=== PATIENT | male | born 1955 ===

== ENCOUNTER 2020-08-03 08:28 | Outpatient (REF) | payer OTHER, SELFPAY ==
[2020-08-03 11:41] LABS: Alanine Aminotransferase 22 U/L (0-40); Anion Gap 11 (12-20); Aspartate Amino Transferase 21 U/L (5-37); Blood Urea Nitrogen 16 mg/dL (9-16); Calcium 8.7 mg/dL (8.4-10.2); Carbon Dioxide 28 mmol/L (22-29); Chloride 103 mmol/L (96-108); Cholesterol 159 mg/dL; Estimated Average Glucose 154 mg/dL; Estimated Glomerular Filt Rate > 60; Glucose Fasting 141 mg/dL (60-99); HDL Cholesterol 47 mg/dL; LDL Cholesterol Calculated 93 mg/dl; Potassium 4.2 mmol/l (3.3-5.1); Sodium 138 mmol/L (135-145); Triglycerides 95 mg/dL
[2020-08-03 11:50] LABS: Thyroid Stimulating Hormone 0.99 uIU/mL (0.32-4.0)
== END 2020-08-03 08:29 | disposition home or self-care (01) ==
LOC: HO.HMGCLDS 08:28
PROVIDERS: PCP Internal Medicine; Visit Provider Internal Medicine
DX: E11.9 Type 2 diabetes mellitus without complications (principal); E78.5 Hyperlipidemia, unspecified; E66.3 Overweight; I10 Essential (primary) hypertension
CPT/HCPCS: 80048; 80061; 83036; 84443; 84450; 84460

== ENCOUNTER 2020-11-07 08:26 | Outpatient (REF) | payer OTHER, SELFPAY ==
[2020-11-07 11:45] LABS: Estimated Average Glucose 223 mg/dL; Hemoglobin A1c % 9.4 %
[2020-11-07 12:09] LABS: Alanine Aminotransferase 27 U/L (0-40); Anion Gap 13 (12-20); Aspartate Amino Transferase 24 U/L (5-37); Blood Urea Nitrogen 26 mg/dL (9-16); Calcium 9.4 mg/dL (8.4-10.2); Carbon Dioxide 26 mmol/L (22-29); Chloride 106 mmol/L (96-108); Cholesterol 193 mg/dL; Estimated Glomerular Filt Rate > 60; Glucose Fasting 218 mg/dL (60-99); HDL Cholesterol 56 mg/dL; LDL Cholesterol Calculated 118 mg/dl; Potassium 4.3 mmol/L (3.3-5.1); Sodium 141 mmol/L (135-145); Triglycerides 99 mg/dL
[2020-11-07 12:10] LABS: Creatinine Urine 175.89 mg/dL; Microalbum/Creatinine Ratio Ur 32.4 ug/mg cr
== END 2020-11-07 08:27 | disposition home or self-care (01) ==
LOC: HO.HMGCLDS 08:26
PROVIDERS: PCP Internal Medicine; Visit Provider Internal Medicine
DX: I10 Essential (primary) hypertension (principal); E11.9 Type 2 diabetes mellitus without complications; E78.5 Hyperlipidemia, unspecified
CPT/HCPCS: 36415; 80048; 80061; 82043; 83036; 84450; 84460

== ENCOUNTER 2021-02-28 08:32 | Outpatient (REF) | payer OTHER, SELFPAY ==
[2021-02-28 11:44] LABS: Estimated Average Glucose 194 mg/dL; Hemoglobin A1c % 8.4 %
[2021-02-28 11:50] LABS: Alanine Aminotransferase 19 U/L (0-40); Anion Gap 12 (12-20); Aspartate Amino Transferase 22 U/L (5-37); Blood Urea Nitrogen 27 mg/dL (9-16); Calcium 9.6 mg/dL (8.4-10.2); Carbon Dioxide 25 mmol/L (22-29); Chloride 107 mmol/L (96-108); Cholesterol 161 mg/dL; Estimated Glomerular Filt Rate > 60; Glucose Fasting 124 mg/dL (60-99); HDL Cholesterol 44 mg/dL; LDL Cholesterol Calculated 98 mg/dl; Potassium 4.1 mmol/L (3.3-5.1); Sodium 140 mmol/L (135-145); Triglycerides 98 mg/dL
== END 2021-02-28 08:33 | disposition home or self-care (01) ==
LOC: HO.HMGCLDS 08:32
PROVIDERS: PCP Internal Medicine; Visit Provider Internal Medicine
DX: E11.29 Type 2 diabetes mellitus with other diabetic kidney complication (principal); E78.5 Hyperlipidemia, unspecified; R80.9 Proteinuria, unspecified; I10 Essential (primary) hypertension
CPT/HCPCS: 36415; 80048; 80061; 83036; 84450; 84460

== ENCOUNTER 2021-07-10 08:49 | Outpatient (REF) | payer OTHER, SELFPAY ==
[2021-07-10 12:00] LABS: Estimated Average Glucose 183 mg/dL
[2021-07-10 12:25] LABS: Alanine Aminotransferase 21 U/L (0-40); Anion Gap 13 (12-20); Aspartate Amino Transferase 22 U/L (5-37); Blood Urea Nitrogen 17 mg/dL (9-16); Calcium 9.6 mg/dL (8.4-10.2); Carbon Dioxide 25 mmol/L (22-29); Chloride 105 mmol/L (96-108); Cholesterol 169 mg/dL; Estimated Glomerular Filt Rate > 60; Glucose Fasting 195 mg/dL (60-99); HDL Cholesterol 44 mg/dL; LDL Cholesterol Calculated 100 mg/dl; Potassium 4.4 mmol/L (3.3-5.1); Sodium 139 mmol/L (135-145); Triglycerides 128 mg/dL
== END 2021-07-10 08:50 | disposition home or self-care (01) ==
LOC: HO.HMGCLDS 08:49
PROVIDERS: PCP Internal Medicine; Visit Provider Internal Medicine
DX: E11.29 Type 2 diabetes mellitus with other diabetic kidney complication (principal); E78.5 Hyperlipidemia, unspecified; I10 Essential (primary) hypertension; R80.9 Proteinuria, unspecified
CPT/HCPCS: 36415; 80048; 80061; 83036; 84450; 84460

== ENCOUNTER 2021-10-02 10:12 | Outpatient (REF) | payer OTHER, SELFPAY ==
[2021-10-02 10:37] LABS: Binax Internal Control QC Valid; Binax Now Covid-19 Ag Negative (Negative)
== END 2021-10-02 10:13 | disposition home or self-care (01) ==
LOC: HO.HMGCLDS 10:12
PROVIDERS: PCP Physician Assistant Medical; Visit Provider Physician Assistant Medical
DX: Z20.822 Contact with and (suspected) exposure to COVID-19 (principal); R05.9 Cough, unspecified
CPT/HCPCS: U0003; U0005

== ENCOUNTER 2021-12-25 09:10 | Outpatient (REF) | payer OTHER, SELFPAY ==
[2021-12-25 11:55] LABS: Alanine Aminotransferase 28 U/L (0-40); Anion Gap 10 (12-20); Aspartate Amino Transferase 24 U/L (5-37); Blood Urea Nitrogen 15 mg/dL (9-16); Calcium 9.6 mg/dL (8.4-10.2); Carbon Dioxide 30 mmol/L (22-29); Chloride 104 mmol/L (96-108); Cholesterol 181 mg/dL; Estimated Glomerular Filt Rate > 60; Glucose Fasting 187 mg/dL (60-99); HDL Cholesterol 47 mg/dL; LDL Cholesterol Calculated 111 mg/dl; Potassium 4.7 mmol/L (3.3-5.1); Sodium 139 mmol/L (135-145); Triglycerides 119 mg/dL
[2021-12-25 11:56] LABS: Estimated Average Glucose 183 mg/dL
== END 2021-12-25 09:11 | disposition home or self-care (01) ==
LOC: HO.HMGCLDS 09:10
PROVIDERS: PCP Internal Medicine; Visit Provider Internal Medicine
DX: Z00.01 Encounter for general adult medical examination with abnormal findings (principal); E11.29 Type 2 diabetes mellitus with other diabetic kidney complication; E78.5 Hyperlipidemia, unspecified; I10 Essential (primary) hypertension; R80.9 Proteinuria, unspecified
CPT/HCPCS: 36415; 80048; 80061; 83036; 84450; 84460

== ENCOUNTER 2022-07-11 09:24 | Outpatient (REF) | payer OTHER, SELFPAY ==
[2022-07-11 12:00] LABS: Estimated Average Glucose 186 mg/dL; Hemoglobin A1c % 8.1 %
[2022-07-11 12:34] LABS: PSA,Total (Free>4and<10) 1.44 ng/mL (0.00-4.00); Vitamin D 25-OH Total 20.9 ng/mL (>30)
[2022-07-11 12:48] LABS: Alanine Aminotransferase 17 U/L (0-40); Anion Gap 14 (12-20); Aspartate Amino Transferase 19 U/L (5-37); Blood Urea Nitrogen 14 mg/dL (9-16); Calcium 9.3 mg/dL (8.4-10.2); Carbon Dioxide 27 mmol/L (22-29); Chloride 103 mmol/L (96-108); Cholesterol 159 mg/dL; Estimated Glomerular Filt Rate > 60; Glucose Fasting 192 mg/dL (60-99); HDL Cholesterol 51 mg/dL; LDL Cholesterol Calculated 92 mg/dl; Potassium 4.3 mmol/L (3.3-5.1); Sodium 140 mmol/L (135-145); Triglycerides 84 mg/dL
[2022-07-11 12:54] LABS: Creatinine Urine 69.11 mg/dL; Microalbum/Creatinine Ratio Ur 28.9 ug/mg cr
== END 2022-07-11 09:25 | disposition home or self-care (01) ==
LOC: HO.HMGCLDS 09:24
PROVIDERS: PCP Internal Medicine; Visit Provider Internal Medicine
DX: E11.29 Type 2 diabetes mellitus with other diabetic kidney complication (principal); R80.9 Proteinuria, unspecified; E78.5 Hyperlipidemia, unspecified; I10 Essential (primary) hypertension; Z12.5 Encounter for screening for malignant neoplasm of prostate
CPT/HCPCS: 36415; 80048; 80061; 82043; 82306; 83036; 84153; 84450; 84460

== ENCOUNTER → 2023-01-09 08:28 | Outpatient (BNVA) | payer BC, SELFPAY | PROVIDERS: PCP Internal Medicine; Visit Provider Nurse Practitioner Family | DX: N40.1 Benign prostatic hyperplasia with lower urinary tract symptoms (principal); R35.1 Nocturia; R35.0 Frequency of micturition; R33.8 Other retention of urine | CPT/HCPCS: 51798 ==

== ENCOUNTER 2023-01-15 09:08 | Outpatient (REF) | payer BC, SELFPAY ==
[2023-01-15 12:18] LABS: Creatinine Urine 79.63 mg/dL; Microalbum/Creatinine Ratio Ur 22.6 ug/mg cr
[2023-01-15 12:20] LABS: Alanine Aminotransferase 15 U/L (0-40); Anion Gap 11 (12-20); Aspartate Amino Transferase 21 U/L (5-37); Blood Urea Nitrogen 12 mg/dL (9-16); Calcium 9.5 mg/dL (8.4-10.2); Carbon Dioxide 26 mmol/L (22-29); Chloride 107 mmol/L (96-108); Cholesterol 144 mg/dL; Estimated Glomerular Filt Rate > 60; Glucose Fasting 180 mg/dL (60-99); HDL Cholesterol 46 mg/dL; LDL Cholesterol Calculated 83 mg/dl; PSA,Total (Free>4and<10) 1.55 ng/mL (0.00-4.00); Potassium 4.2 mmol/L (3.3-5.1); Sodium 140 mmol/L (135-145); Triglycerides 77 mg/dL; Vitamin D 25-OH Total 18.3 ng/mL (>30)
[2023-01-15 12:24] LABS: Estimated Average Glucose 180 mg/dL; Hemoglobin A1c % 7.9 %
== END 2023-01-15 09:09 | disposition home or self-care (01) ==
LOC: HO.HMGCLDS 09:08
PROVIDERS: PCP Internal Medicine; Visit Provider Internal Medicine
DX: Z00.01 Encounter for general adult medical examination with abnormal findings (principal); Z12.5 Encounter for screening for malignant neoplasm of prostate; E11.29 Type 2 diabetes mellitus with other diabetic kidney complication; I10 Essential (primary) hypertension; N40.0 Benign prostatic hyperplasia without lower urinary tract symptoms; R80.9 Proteinuria, unspecified; E78.5 Hyperlipidemia, unspecified
CPT/HCPCS: 36415; 80048; 80061; 82043; 82306; 83036; 84153; 84450; 84460

== ENCOUNTER 2023-02-20 10:25 | Outpatient (REF) | payer BC, SELFPAY ==
--- NOTE | ~2023-02-20 | US_ITS ---
EXAMINATION: US RETROPERITONEAL COMPLETE (RENAL) CLINICAL INFORMATION: Frequency of micturition. COMPARISON: None available. TECHNIQUE: Real-time imaging of the kidneys and bladder. FINDINGS: RIGHT KIDNEY: 12.6 x 5.7 x 5.4 cm (SAG x AP x TRV). The kidney is normal in size, contour, and echogenicity. Renal cortical thickness is normal. There is a 2.7 x 2.2 x 2.6 cm isoechoic lesion with rim calcification exophytic to the midpole. There is a 3 mm stone in the midpole. There is a 1.2 x 0.7 x 0.9 cm cyst in the lower pole. No hydronephrosis. LEFT KIDNEY: 12.4 x 5.5 x 5.3 cm (SAG x AP x TRV). The kidney is normal in size, contour, and echogenicity. Renal cortical thickness is normal. No calculi or focal parenchymal lesions. No hydronephrosis. BLADDER: Thickened trabeculated bladder wall. No stone or mass. Bilateral ureteral jets are not demonstrated. Prevoid bladder volume is 184 mL. Postvoid bladder volume is 53.5 mL. ADDITIONAL FINDINGS: The prostate gland is enlarged and protrudes into the base of the bladder. Prostate gland measures 4.2 x 5 x 4 cm, volume 4.5 mL. US/US retroperitoneal comp IMPRESSION: 2.7 x 2.2 x 2.6 cm isoechoic lesion exophytic to the midpole of the right kidney with rim calcification. It is uncertain whether this represents a complex cyst or solid lesion. Follow-up CT or MRI of the kidneys with contrast recommended. Small right renal stone. Thickened trabeculated bladder wall. Multiple small bladder diverticuli. Enlarged prostate gland that protrudes into the base of the bladder. 54 mL post void bladder residual. Findings will be communicated by the [employer] emergency services manager..
== END 2023-02-20 10:26 | disposition home or self-care (01) ==
LOC: HO.US 10:25
PROVIDERS: PCP Internal Medicine; Visit Provider Nurse Practitioner Family
DX: R35.0 Frequency of micturition (principal); R35.1 Nocturia
CPT/HCPCS: 76770

== ENCOUNTER → 2023-03-06 10:50 | Outpatient (BNVA) | payer BC, SELFPAY | PROVIDERS: Visit Provider Nurse Practitioner Family | DX: N40.1 Benign prostatic hyperplasia with lower urinary tract symptoms (principal); R33.8 Other retention of urine; R35.1 Nocturia; R35.0 Frequency of micturition; N28.1 Cyst of kidney, acquired; E11.69 Type 2 diabetes mellitus with other specified complication; N52.1 Erectile dysfunction due to diseases classified elsewhere; N20.0 Calculus of kidney; Z79.899 Other long term (current) drug therapy | CPT/HCPCS: 51798 ==

== ENCOUNTER 2023-04-07 08:03 | Outpatient (REF) | payer BC, SELFPAY ==
[2023-04-07 11:50] LABS: Estimated Average Glucose 166 mg/dL; Hemoglobin A1c % 7.4 %
[2023-04-07 11:59] LABS: Alanine Aminotransferase 13 U/L (0-40); Aspartate Amino Transferase 17 U/L (5-37); Cholesterol 150 mg/dL; HDL Cholesterol 44 mg/dL; LDL Cholesterol Calculated 84 mg/dl; Triglycerides 110 mg/dL
== END 2023-04-07 08:04 | disposition home or self-care (01) ==
LOC: HO.HMGCLDS 08:03
PROVIDERS: PCP Internal Medicine; Visit Provider Internal Medicine
DX: E11.29 Type 2 diabetes mellitus with other diabetic kidney complication (principal); R80.9 Proteinuria, unspecified; I10 Essential (primary) hypertension; E78.5 Hyperlipidemia, unspecified
CPT/HCPCS: 36415; 80061; 83036; 84450; 84460

== ENCOUNTER 2023-04-29 15:30 | Outpatient (REF) | payer BC, SELFPAY ==
--- NOTE | ~2023-04-29 | MR_ITS ---
EXAMINATION: MR ABDOMEN WITH AND WITHOUT CONTRAST CLINICAL INFORMATION: Follow up 2.7 cm exophytic lesion from the mid pole of the right kidney. COMPARISON: Retroperitoneal ultrasound 02/20/2023. TECHNIQUE: Multiple routine MRI sequences through the abdomen were obtained before and after the uneventful administration of 8 mL Gadavist gadolinium-based IV contrast. FINDINGS: LUNG BASES: Lung bases are clear. LIVER: Signal loss in the [id number] dual-echo images most consistent with hepatic steatosis. The liver is otherwise normal in size and shape. No focal liver lesion. GALLBLADDER AND BILIARY TREE: Normal gallbladder. No biliary ductal dilatation. SPLEEN: Normal size. No focal lesion. PANCREAS: Homogeneous signal attenuation. No peripancreatic fat stranding or free fluid. No main ductal dilatation. ADRENAL GLANDS: No adrenal mass. KIDNEYS AND URETERS: Symmetric nephrograms. No hydronephrosis. No perinephric fat stranding. Corresponding to the lesion in question, there is a 2.5 x 2.3 cm well-defined mass exophytically from the lateral surface of the interpolar right kidney demonstrating low T2 signal and hypoenhancement compared to the renal parenchyma. The enhancement minimally progresses on delayed images with higher quantitative signal attenuation. On T1 precontrast images, it is iso- to slightly hypointense compared to the renal cortex. In the in- and [id number] dual-echo images, there are no findings to suggest the presence of fat or blood products. A 1.2 cm T2 bright avascular simple cyst is noted along the posterior medial surface of the upper right kidney, and a 1.2 cm T2 bright simple avascular cyst is noted along the posteromedial surface of the lower left kidney, for which no imaging followup is recommended. GASTROINTESTINAL: Nonspecific gastric distention with heterogeneous debris, possibly related with postprandial state. LYMPHOVASCULAR STRUCTURES: Normal caliber aorta. IVC patent. No pathologically enlarged abdominal or retroperitoneal lymphadenopathy by short axis size criteria. OSSEOUS STRUCTURES: No acute or suspicious osseous abnormalities. Degenerative changes of the spine. MR/MR kidney wo/w con IMPRESSION: 1. 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 Recommend urologic consultation to guide further management. 2. Hepatic steatosis. 3. Nonspecific gastric distention with heterogeneous debris, possibly related with postprandial state. Additional differential considerations include gastroparesis or gastric of obstruction.
[2023-04-29] MEDS: gadobutroL 10 ML VIAL IVPUSH (16:26)
== END 2023-04-29 15:31 | disposition home or self-care (01) ==
LOC: HO.MRI 15:30
PROVIDERS: PCP Internal Medicine; Visit Provider Nurse Practitioner Family
DX: N28.89 Other specified disorders of kidney and ureter (principal)
CPT/HCPCS: 74181; A9585

== ENCOUNTER 2023-05-08 12:17 | Outpatient (AMB) | payer BC, SELFPAY ==
[2023-05-08 12:30] VITALS: BP 125/66; PULSE 73; O2SAT 98; BMI 26.3
--- NOTE | 2023-05-08 12:30 | A.OFFPC_ITS ---
Vital Signs 05/08/23 12:30 Height 5 ft 9 in Weight 178 lb BMI 26.3 BP 125/66 Blood Pressure Location Lt brachial Position Sitting Pulse 73 Pulse Source Pulse Oximeter Pulse Oximetry (%) 98 Oxygen Delivery Method Room Air Intake Visit Reasons: f/u labs Intake Note: Pt is here today for his lab results Allergies No Known Allergies Allergy (Verified 05/08/23 12:31) Medication List - Last Reconciled 05/11/23 by Jessica Jones MD albuterol sulfate 90 mcg/actuation 2 puffs inhalation Q6H PRN aspirin (Adult Low Dose Aspirin) 81 mg PO DAILY atorvastatin 20 mg PO DAILY blood sugar diagnostic ([employer] Verio test strips) Check blood sugar q.a.m. before breakfast every morning; 90 days blood-glucose meter ([employer] Verio Meter) As directed cholecalciferol (vitamin D3) 1,250 mcg PO QWEEK 3 months finasteride 5 mg PO DAILY glipizide 5 mg PO BID lancets ([employer] Delica Plus Lancet) Test blood sugar once daily lisinopril 5 mg PO DAILY metformin 1,000 mg PO Q12H sildenafil 100 mg PO DAILY PRN 30 days terazosin 5 mg PO BEDTIME 90 days timolol maleate 0.5% 1 drp ophthalmic (eye) BID Tobacco use date assessed: 05/08/23 Fall risk assessment: No Falls in past year Last assessed Fall Risk: 05/08/23 Dental Screening Dental Screen Date: 05/08/23 Did you have a dental visit in the last 12 months?: Yes Did you have a dental problem in the last 6 months where you did not have access to dental care?: Yes Was dental information given to patient?: Patient has dentist HPI HPI Comments History of Present Illness Details 68-year-old male with diabetes mellitus dyslipidemia and hypertension here today for his follow-up. He has been compliant take his medications and has been following recommended diet. Recent labs showed improvement in diabetes control with hemoglobin A1c now down to 7.4%, and blood pressure and fasting lipids are within normal limits. [facility] Medical History (Updated 05/08/23 @ 13:04 by Jessica Jones MD) Anemia Benign prostatic hyperplasia Borderline open-angle glaucoma Diabetes mellitus with microalbuminuria, without long-term current use of insulin Dyslipidemia Erectile disorder due to medical condition in male Essential hypertension Reactive airway disease Vitamin D deficiency Surgical History History of cataract surgery Hx of colonoscopy Family History Father Throat cancer Mother Unknown family medical history Daughter No problems noted. Social History Housing: House Alcohol intake: current Patient Tobacco Use Status: Never used Tobacco e-Cigarette/Vaping Use: Never Used Second Hand Smoke Exposure: No service: No Current occupational status: employed Current occupation: [employer] Current occupational exposures/hazards: No Cognitive needs: No Hearing needs: No Vision needs: Yes Questionnaire Thrive Questionnaire Date Thrive assessed: 12/10/22 DANIELLE-7 AMB Questionnaire DANIELLE-7 Date DANIELLE - 7 assessed: 12/10/22 Source: Developed by Drs. Efe Miller, Angelique Mckeon, Chet Gómez and colleagues, with an educational irina from [employer]. Review of Systems Const Reports no additional complaints Eyes Details: Up-to-date with his diabetes retinopathy screening, done June [address] Kunz Reports no additional complaints ENT Reports no additional complaints and Reports Normal hearing present Card Reports no additional complaints Resp Reports no additional complaints GI Reports no additional complaints Reports as per HPI Musc Reports no additional complaints Skin/Breast Denies lesions and Denies rash Neuro Reports no additional complaints, Reports Normal hearing present and Denies Sensory deficit (Neuro) Psych Reports no additional complaints Endo Reports as per HPI Tae/Lymph Reports no additional complaints Aller/Immun Reports no additional complaints Physical exam (Primary Care) Vital Signs: Last Vital Signs Pulse 73 05/08/23 12:30 BP 125/66 05/08/23 12:30 Pulse Ox 98 05/08/23 12:30 Oxygen Delivery Method Room Air 05/08/23 12:30 BMI result Body Mass Index 26.3 Tobacco/Smoking Status: Tobacco use Status Tobacco use date assessed 05/08/23 05/08/23 12:35 Patient Tobacco Use Status Never used Tobacco 05/08/23 12:30 e-Cigarette/Vaping Use Never Used 05/08/23 12:30 Thrive Assessment: Date of Thrive Assessment Date Thrive assessed 12/10/22 05/08/23 12:30 Const General: comfortable and no acute distress Nutritional Appearance: average body habitus Orientation/consciousness: patient oriented x3 Limitations: no limitations HENMT Head: Yes normocephalic Ears: hearing grossly normal bilaterally and external ears normal General nose exam: Normal external nose present Face and sinus: Yes face symmetric Mouth: oropharynx normal and moist mucous membranes Eyes Conjunctivae: conjunctivae normal Sclerae: sclerae normal Pupils: Equal, round and reactive pupils present EOM: EOMs intact bilaterally Neck Neck: Yes full ROM and Yes no lymphadenopathy Thyroid: Thyroid normal Carotids: normal carotid upstroke Resp Effort & Inspection: normal respiratory effort and able to speak in complete sentences Auscultation: clear to auscultation bilaterally Cardio Other: S1-S2 present regular rate and rhythm Jugular venous distension: no JVD Rate: regular rate Rhythm: regular rhythm Heart sounds: S1 normal heart sound present and S2 normal heart sound present GI Inspection: Yes normal to inspection Palpation (GI): Soft to palpation Auscultation: normal bowel sounds General: Yes no CVA tenderness Back/Spine/Pelvis Back: no CVA tenderness Skin General skin exam: no rashes or lesions noted Neuro General: patient oriented x3, gait normal, moves all extremities, Normal light touch and pain sensation, no focal motor deficits and CN's II-XI intact bilaterally Cranial nerves: Yes Equal, round and reactive pupils present and Yes Normal hearing present Cognition (Neuro): normal cognition Gait exam (Neuro): Normal gait present Motor exam (neuro): 5/5 motor strength present throughout Sensory Exam: No Sensory deficit (Neuro) Extrem General: Yes full ROM, Yes no joint enlargement, Yes no pedal edema, Yes no calf tenderness and Yes normal gait Immunizations pneumoc 20-nahomi conj-dip cr(PF) Performing Provider: Jessica Jones MD Administered by: Celestina Godinez CMA on 05/08/23 13:04 Dose Route Admin Location Lot Number Expiration Date [employer] Business Development Assistant 0.5 mL IM Left Deltoid [id number] 07/07/24 7348-1170-21 [employer] VIS Given Date VIS Provided VIS Publication Date 05/08/23 Single Vaccine 21 Eligibility Eligibility Date Funding Source Not VFC Eligible 05/08/23 Private Results Reviewed Results Reviewed: Laboratory Tests 04/07/23 08:16 Estimat Average Glucose 166 Hemoglobin A1c % 7.4 ENTERED: 04/07/23 ROSIO ARZOLA: ORDERED: AST, ALT, Lipid Panel Test Result Flag Reference Site AST (GOT) 17 5-37 U/L ALT (GPT) 13 0-40 U/L Triglyceride 110 mg/dL Desirable Triglyceride: less than 150 mg/dL Borderline High Triglyceride 150-199 mg/dL High Triglyceride: 200-499 mg/dL Very High Triglyceride: greater than or equal to 5OO mg/dL Chol 150 mg/dL Desirable Cholesterol: less than 200 mg/dL Borderline High Cholesterol: 200-239 mg/dL High Cholesterol: greater than 239 mg/dL LDL Calculated 84 mg/dl Desirable LDL: less than 100 mg/dL Near Optimal/Above Optimal LDL: 110-129 mg/dL Borderline High LDL: 130-159 mg/dL High LDL: 160-189 mg/dL Very High LDL: greater than or equal to 190 mg/dL HDL 44 mg/dL Desirable HDL: greater than 40 mg/dL Assessment and Plan Assessment & Plan (1) Diabetes mellitus with microalbuminuria, without long-term current use of insulin: Code(s): E11.29 - Type 2 diabetes mellitus with other diabetic kidney complication; R80.9 - Proteinuria, unspecified Plan: Recent lab results reviewed with patient, with improving control of diabetes now with hemoglobin A1c at 7.4%, but goal again is less than 7%. continue to check fasting blood sugar at home, maintain log and bring to next appointment for review. Reinforced diabetic diet and regular exercise with patient. Counseled regarding importance of yearly diabetes retinopathy screening. Patient advised to inspect feet daily, for any signs of injury, callus or infection. Compliance with diet and regular exercise again stressed. Blood pressure goal is less than 130/80, goal LDL is less than 100 and goal hemoglobin A1c is less than 7% follow-up appointment made in--3-months, after fasting labs done. Prevnar 20 given today, reminded to get his COVID booster that is coming out soon and get yearly flu shots (2) Essential hypertension: Code(s): I10 - Essential (primary) hypertension Plan: Blood pressure at goal of less than 130/80. Continue with current medication. Reinforced importance of following a low sodium diet, getting regular exercise, and lowering stress levels. (3) Dyslipidemia: Code(s): E78.5 - Hyperlipidemia, unspecified Plan: Reviewed recent fasting lipid profile with patient with levels within normal limits . Continue with atorvastatin 20 mg daily , in addition to adherence to low-cholesterol diet and regular exercise, at least 30 minutes 3 to 4 times a week. Advised patient to make healthy food choices, eat more fruits, vegetables, whole grains, wild caught fish and low-fat dairy. Limit amount of meat and fried or fatty food products, as well as processed foods and fast foods. Follow-up scheduled with repeat fasting lipid panel in 3 months. (4) Anemia: Code(s): D64.9 - Anemia, unspecified Plan: Ordered CBC and iron profile Orders: Orders Alanine Aminotransferase 08/07/23 D64.9 - Anemia, unspecified, E11.29 - Type 2 diabetes mellitus with other diabetic kidney complication, E78.5 - Hyperlipidemia, unspecified, I10 - Essential (primary) hypertension, R80.9 - Proteinuria, unspecified, Z86.39 - Personal history of other endocrine, nutritional and metabolic disease Aspartate Amino Transferase 08/07/23 D64.9 - Anemia, unspecified, E11.29 - Type 2 diabetes mellitus with other diabetic kidney complication, E78.5 - H yperlipidemia, unspecified, I10 - Essential (primary) hypertension, R80.9 - Proteinuria, unspecified, Z86.39 - Personal history of other endocrine, nutritional and metabolic disease Basic Metabolic Panel Fasting 08/07/23 D64.9 - Anemia, unspecified, E11.29 - Type 2 diabetes mellitus with other diabetic kidney complication, E78.5 - Hyperlipidemia, unspecified, I10 - Essential (primary) hypertension, R80.9 - Proteinuria, unspecified, Z86.39 - Personal history of other endocrine, nutritional and metabolic disease Hemoglobin A1c 08/07/23 D64.9 - Anemia, unspecified, E11.29 - Type 2 diabetes mellitus with other diabetic kidney complication, E78.5 - Hyperlipidemia, unspecified, I10 - Essential (primary) hypertension, R80.9 - Proteinuria, unsp ecified, Z86.39 - Personal history of other endocrine, nutritional and metabolic disease IRON PROFILE 08/07/23 D64.9 - Anemia, unspecified, E11.29 - Type 2 diabetes mellitus with other diabetic kidney complication, E78.5 - Hyperlipidemia, unspecified, I10 - Essential (primary) hypertension, R80.9 - Proteinuria, unspecified, Z86.39 - Personal history of other endocrine, nutritional and metabolic disease Lipid Panel 08/07/23 D64.9 - Anemia, unspecified, E11.29 - Type 2 diabetes mellitus with other diabetic kidney complication, E78.5 - Hyperlipidemia, unspecified, I10 - Essential (primary) hypertension, R80.9 - Proteinuria, unspecified, Z86.39 - Personal history of other endocrine, nutritional and metabolic disease Complete Blood Count Auto Diff 08/07/23 D64.9 - Anemia, unspecified, E11.29 - Type 2 diabetes mellitus with other diabetic kidney complication, E78.5 - Hyperlipidemia, unspecified, I10 - Essential (primary) hypertension, R80.9 - Proteinuria, unspecified, Z86.39 - Personal history of other endocrine, nutritional and metabolic disease Vitamin D 25-OH Total 08/07/23 D64.9 - Anemia, unspecified, E11.29 - Type 2 diabetes mellitus with other diabetic kidney complication, E78.5 - Hyperlipidemia, unspecified, I10 - Essential (primary) hypertension, R80.9 - Proteinuria, unspecified, Z86.39 - Personal history of other endocrine, nutritional and metabolic disease Pneumococcal 20 Immunization 05/08/23 Z23 - Encounter for immunization Coding Level of Care Code Est Pt Level 3 (00833) Diagnoses Diabetes mellitus with microalbuminuria, without long-term current use of insulin E11.29; R80.9 Essential hypertension I10 Dyslipidemia E78.5 Anemia D64.9
== END 2023-05-08 13:15 | disposition home or self-care (01) ==
PROVIDERS: PCP Internal Medicine; Visit Provider Internal Medicine
DX: Z23 Encounter for immunization (principal)
CPT/HCPCS: 90471; 90677; 99213

== ENCOUNTER 2023-05-26 11:23 | Outpatient (AMB) | payer BC, SELFPAY ==
--- NOTE | 2023-05-26 11:36 | MHC.OFFVIS ---
Intake Intake Visit Reasons: MRI- follow up(SET) Intake Note: Patient is present for follow up MRI/nocturia/retention (imaging 04/29/23) Urology Medications: finasteride, terazosin, sildenafil Blood Thinner: aspirin PVR: 225ml's Door Tender Required: Yes Accompanied by: Self / Same As Patient Allergies No Known Allergies Allergy (Verified 05/26/23 20:12) Medication List - Last Reconciled 05/26/23 by SHIRLEY HusseinP- albuterol sulfate 90 mcg/actuation 2 puffs inhalation Q6H PRN aspirin (Adult Low Dose Aspirin) 81 mg PO DAILY atorvastatin 20 mg PO DAILY blood sugar diagnostic (Sprout Routeuch Verio test strips) Check blood sugar q.a.m. before breakfast every morning; 90 days blood-glucose meter (Sprout [employer] Verio Meter) As directed cholecalciferol (vitamin D3) 1,250 mcg PO QWEEK 3 months finasteride 5 mg PO DAILY glipizide 5 mg PO BID lancets (amSTATZTouch Delica Plus Lancet) Test blood sugar once daily lisinopril 5 mg PO DAILY metformin 1,000 mg PO Q12H sildenafil 100 mg PO DAILY PRN 30 days terazosin 10 mg (2 x 5 mg) PO BEDTIME 90 days timolol maleate 0.5% 1 drp ophthalmic (eye) BID HPI HPI Comments History of Present Illness Details Manual is a pleasant 68-year-old Mongolian-speaking male patient of Dr. Jones who was accompanied by his at today's visit. He has a past medical history of BPH, borderline open angle glaucoma, diabetes mellitus with microalbuminuria, dyslipidemia, hypertension, reactive airway disease, and vitamin-D deficiency. He presents to the office today for follow-up of his urinary issues. Of note, patient was seen approximately 2 month ago at which time a retroperitoneal ultrasound was reviewed and noted right kidney with a 2.7 x 2.2 x 2.6 cm isoechoic lesion with rim calcification to the midpole. There is a 3 mm stone in the midpole. There is a 1.2 by with a 0.7 x 0.9 cm cyst in the lower pole. No hydronephrosis noted. Left kidney is normal with no calculi, lesions, and or hydronephrosis. Thickened trabeculated bladder wall. No stone or masses seen within the bladder. Prostate volume measures approximately 45 mL. The prostate gland is enlarged and protrudes into the base of the bladder. At which time an MRI renal mass protocol was ordered these results were reviewed with the patient and his today. 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 Discussed at length further workup and intervention with right renal biopsy and cryoablation. Discussed risks and benefits at length. Patient reports somewhat improvement in lower urinary tract symptoms on 5 mg of terazosin at bedtime. In office urinalysis results reviewed with the patient today. However, PVR noted to be 255 mL. Discussed increase of terazosin to 10 mg at bedtime versus possible trial of bethanechol if PVRs continue to be elevated. Discussed at length potential causes for incomplete bladder emptying and affects of incomplete bladder emptying. He otherwise denies urinary urgency, incontinence, hematuria, dysuria, foul smelling urine, changes to urinary stream, flank pain, fever, and or chills. PSAs are as follows... 07/29 1.4 01/27--1.6 Discussed at length importance of managing diabetes for improvement in urinary symptoms as well as for overall health and well-being. [facility] Medical History Anemia Vitamin D deficiency Erectile disorder due to medical condition in male Reactive airway disease Diabetes mellitus with microalbuminuria, without long-term current use of insulin Essential hypertension Benign prostatic hyperplasia Borderline open-angle glaucoma Dyslipidemia Surgical History Hx of colonoscopy History of cataract surgery Family History Father Throat cancer Mother Unknown family medical history Daughter No problems noted. Social History Housing: House Alcohol intake: current Patient Tobacco Use Status: Never used Tobacco e-Cigarette/Vaping Use: Never Used Second Hand Smoke Exposure: No service: No Current occupational status: employed Current occupation: [employer] Current occupational exposures/hazards: No Cognitive needs: No Hearing needs: No Vision needs: Yes Review of Systems Const Reports as per HPI Eyes Reports as per [facility] ENT Reports no additional complaints Card Reports as per HPI Resp Reports as per HPI GI Reports no additional complaints Reports as per [facility] Musc Reports no additional complaints Neuro Reports no additional complaints Psych Reports no additional complaints Endo Reports as per [facility] Tae/Lymph Reports no additional complaints Aller/Immun Reports no additional complaints Physical Exam Const General: cooperative, healthy appearing, comfortable, no acute distress, well developed, alert and awake Orientation/consciousness: patient oriented x3 Limitations: no limitations HEENT Head: Yes normal to inspection, Yes normocephalic and Yes atraumatic Ears: hearing grossly normal bilaterally Eyes General: appearance normal, both eyes and all related structures Neck Neck: Yes normal visual inspection and Yes trachea midline Chest Chest palpation & inspection: normal inspection of the chest Resp Effort & Inspection: normal respiratory effort and able to speak in complete sentences Cardio Rate: regular rate GI Inspection: Yes normal to inspection General: Yes no CVA tenderness Back/Spine/Pelvis Back: no CVA tenderness Skin General skin exam: no rashes or lesions noted Neuro General: patient oriented x3 Extrem General: Yes normal to inspection Psych Appearance: grossly normal and well kempt Mental Status: mental status grossly normal Speech and movement: Normal speech and movement present and Clear speech present Affect: normal affect Attitude: cooperative Thought process: Normal thought process present Thought content: Normal thought content present Insight: Good insight present (Psych) Judgement: Good judgement present (Psych) Office Procedures Post Void Residual Post Residual Void Post Void Residual (PVR): 225 [id number] Void Residual by ultrasound Results AMB Urinalysis, Automated UA Leukoctes 0 Jerry/uL Last Edit by [facility] [facility]bie on 05/26/23 11:50 UA Nitrite Negative Last Edit by [employer] on 05/26/23 11:50 UA Urobilinogen 0.2 mg/dL Last Edit by [employer] on 05/26/23 11:50 UA Protein 0 mg/dL Last Edit by [employer] on 05/26/23 11:50 UA pH 6.0 Last Edit by [employer] on 05/26/23 11:50 UA Blood 0 Brandon/uL Last Edit by [employer] on 05/26/23 11:50 UA Specific [place] 1.015 Last Edit by [employer] on 05/26/23 11:50 UA Ketone Negative Last Edit by Carmencita Valentin on 05/26/23 11:50 UA Bilirubin 0 mg/dL Last Edit by Carmencita Valentin on 05/26/23 11:50 UA Glucose 500 mg/dL Last Edit by Carmencita Valentin on 05/26/23 11:50 Results Reviewed Results Reviewed: Laboratory Last Values Urine pH (Auto) 6.0 05/26/23 11:41 Specific [place] (Auto) 1.015 05/26/23 11:41 Urine Protein (Auto) 0 mg/dL 05/26/23 11:41 Glucose (UA)(Auto) 500 mg/dL 05/26/23 11:41 Urine Ketones (Auto) Negative 05/26/23 11:41 Urine Blood (Auto) 0 Brandon/uL 05/26/23 11:41 Urine Nitrite (Auto) Negative 05/26/23 11:41 Urine Bilirubin (Auto) 0 mg/dL 05/26/23 11:41 Urine Urobilinogen (Auto) 0.2 mg/dL 05/26/23 11:41 Leukocyte Esterase (Auto) 0 Jerry/uL 05/26/23 11:41 Date of Service: 04/29/23 EXAMINATION: MR ABDOMEN WITH AND WITHOUT CONTRAST FINDINGS: LUNG BASES: Lung bases are clear. LIVER: Signal loss in the [id number] dual-echo images most consistent with hepatic steatosis. The liver is otherwise normal in size and shape. No focal liver lesion. GALLBLADDER AND BILIARY TREE: Normal gallbladder. No biliary ductal dilatation. SPLEEN: Normal size. No focal lesion. PANCREAS: Homogeneous signal attenuation. No peripancreatic fat stranding or free fluid. No main ductal dilatation. ADRENAL GLANDS: No adrenal mass. KIDNEYS AND URETERS: Symmetric nephrograms. No hydronephrosis. No perinephric fat stranding. Corresponding to the lesion in question, there is a 2.5 x 2.3 cm well-defined mass exophytically from the lateral surface of the interpolar right kidney demonstrating low T2 signal and hypoenhancement compared to the renal parenchyma. The enhancement minimally progresses on delayed images with higher quantitative signal attenuation. On T1 precontrast images, it is iso- to slightly hypointense compared to the renal cortex. In the in- and [id number] dual-echo images, there are no findings to suggest the presence of fat or blood products. A 1.2 cm T2 bright avascular simple cyst is noted along the posterior medial surface of the upper right kidney, and a 1.2 cm T2 bright simple avascular cyst is noted along the posteromedial surface of the lower left kidney, for which no imaging followup is recommended. GASTROINTESTINAL: Nonspecific gastric distention with heterogeneous debris, possibly related with postprandial state. LYMPHOVASCULAR STRUCTURES: Normal caliber aorta. IVC patent. No pathologically enlarged abdominal or retroperitoneal lymphadenopathy by short axis size criteria. OSSEOUS STRUCTURES: No acute or suspicious osseous abnormalities. Degenerative changes of the spine. IMPRESSION: 1. 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 Recommend urologic consultation to guide further management. 2. Hepatic steatosis. 3. Nonspecific gastric distention with heterogeneous debris, possibly related with postprandial state. Additional differential considerations include gastroparesis or gastric of obstruction. Assessment & Plan Assessment & Plan (1) Renal mass: Code(s): N28.89 - Other specified disorders of kidney and ureter (2) Incomplete bladder emptying: Code(s): R33.9 - Retention of urine, unspecified Plan: Risks, benefits and alternatives to therapy were discussed. These include but are not limited to infection, bleeding, damage to local organs and tissues, need for further interventions. ? Anesthetic risks regarding cardiac arrhythmia, blood clots, and potential mortality were discussed. The patient understands the typical recovery time and the outpatient nature of the procedure. After consideration of these risks the patient gives full informed consent and they wish to move ahead with the procedure. Plan In office urinalysis results reviewed with the patient today; as noted above. PVR 255 mL. Increase terazosin to 10 mg daily at bedtime. Discussed recent MRI results with the patient today; as noted above. Discussed further intervention with right-sided renal biopsy and cryoablation. Discussed at length risks and benefits of procedure All questions were answered. Discussed at length potential causes and affects of incomplete bladder emptying. Will schedule for right-sided renal biopsy with cryoablation Follow-up in office in 1-2 weeks status post procedure; or sooner with any questions, concerns, and or issues. Orders: Orders AMB Urinalysis Automated Today Z13.9 - Encounter for screening, unspecified AMB Post Void Residual by ultrasound Today R33.9 - Retention of urine, unspecified Medications: Changed From terazosin 5 mg PO BEDTIME 90 days 90 caps 3RF N40.1 - Benign prostatic hyperplasia with lower urinary tract symptoms, R35.0 - Frequency of micturition To terazosin 10 mg (2 x 5 mg) PO BEDTIME 90 days 180 caps 3RF N40.1 - Benign prostatic hyperplasia with lower urinary tract symptoms, R35.0 - Frequency of micturition Patient Instructions: The patient had an opportunity to ask questions regarding the treatment plan. All questions were answered. Physical exam, labs, and imaging were discussed and reviewed in detail. As well as risks, benefits, and discussion of treatment choices. No major barriers to understanding were identified. The patient expressed understanding and agreement with the above treatment plan. The patient was made aware they should contact our office by phone for worsening of their current condition, the appearance of new symptoms, or with any questions or concerns. Compliance is encouraged with any medications and follow up testing that is ordered. It is a privilege to be allowed the opportunity to participate in? your urological care.? Again, if you have any questions or concerns If you have any questions or concerns please do not hesitate to contact me. The office is [phone]. This note is constructed using voice recognition software. While every effort has been made to ensure accuracy community administrator errors may have been included. Yours sincerely, MJ Hussein Coding Level of Care Code Est Pt Level 4 (71800) Diagnoses Renal mass N28.89 Incomplete bladder emptying R33.9 CPT Codes Post Residual Void - PVR CPT Code: 97560-Pfzw Void Residual by ultrasound ([id number])
== END 2023-05-26 12:44 | disposition home or self-care (01) ==
PROVIDERS: PCP Internal Medicine; Visit Provider Nurse Practitioner Family
DX: N28.89 Other specified disorders of kidney and ureter (principal); R33.9 Retention of urine, unspecified; Z13.9 Encounter for screening, unspecified
CPT/HCPCS: 99214

== ENCOUNTER → 2023-05-26 11:23 | Outpatient (BNVA) | payer BC, SELFPAY | PROVIDERS: PCP Internal Medicine; Visit Provider Nurse Practitioner Family | DX: N28.89 Other specified disorders of kidney and ureter (principal); N40.1 Benign prostatic hyperplasia with lower urinary tract symptoms; R33.8 Other retention of urine | CPT/HCPCS: 51798; 81003 ==

== ENCOUNTER 2023-06-23 11:31 | Day surgery (SDC) | payer BC, SELFPAY ==
--- NOTE | 2023-06-22 12:25 | P.CONAN_ITS ---
Documented by User: Catina Ross NP 06/22/23 12:27 HPI - Anesthesia Eval Consult details Narrative: 68yo M for Right Kidney Cryo-Ablation PMFSH Active Problems Active Problems: All Active Problems (Updated 05/26/23 @ 20:19 by KAVON HusseinPARTHA) Renal mass (Acute) Anemia (Acute) Nephrolithiasis (Acute) Erectile dysfunction associated with type 2 diabetes mellitus (Acute) Enlarged prostate (Acute) Complex renal cyst (Acute) Vitamin D deficiency (Acute) Incomplete bladder emptying (Acute) Nocturia (Acute) Urinary frequency (Acute) Erectile disorder due to medical condition in male (Acute) Reactive airway disease (Acute) Diabetes mellitus with microalbuminuria, without long-term current use of insulin (Acute) Essential hypertension (Acute) Benign prostatic hyperplasia (Acute) Borderline open-angle glaucoma (Acute) Dyslipidemia (Acute) Past Medical History Medical History Anemia Vitamin D deficiency Erectile disorder due to medical condition in male Reactive airway disease Diabetes mellitus with microalbuminuria, without long-term current use of insulin Essential hypertension Benign prostatic hyperplasia Borderline open-angle glaucoma Dyslipidemia Family History Family History Father Throat cancer Mother Unknown family medical history Daughter No problems noted. Surgical History Surgical History Hx of colonoscopy History of cataract surgery Social History Social History Housing: House Alcohol intake: current Patient Tobacco Use Status: Never used Tobacco e-Cigarette/Vaping Use: Never Used Second Hand Smoke Exposure: No Advance Directives: No Advance Directives Information Provided: Yes service: No Current occupational status: employed Current occupation: [employer] Current occupational exposures/hazards: No Cognitive needs: No Hearing needs: No Vision needs: Yes Meds Allergies Allergy/AdvReac Type Severity Reaction Status Date / Time No Known Allergies Allergy Verified 05/26/23 20:12 Home Medications Medication Instructions Recorded Confirmed Last Taken Type timolol maleate 0.5 % eye drops 1 drp ophthalmic (eye) BID 07/15/21 03/10/23 Unknown History aspirin 81 mg tablet,delayed 81 mg PO DAILY 12/10/22 03/10/23 Unknown History release (Adult Low Dose Aspirin) Exam Exam Date and Time: June 22, 2023 1225 Assessment and Plan Assessment Anesthesia Assessment: Chart Reviewed Documented by User: Shashank Hawkins MD 06/23/23 11:53 [facility] Past Medical History Medical History Anemia Vitamin D deficiency Erectile disorder due to medical condition in male Reactive airway disease Diabetes mellitus with microalbuminuria, without long-term current use of insulin Essential hypertension Benign prostatic hyperplasia Borderline open-angle glaucoma Dyslipidemia Family History Family History Father Throat cancer Mother Unknown family medical history Daughter No problems noted. Family history of problems with anesthesia: No Surgical History Surgical History Hx of colonoscopy History of cataract surgery History of Problems with Anesthesia: No Social History Social History Housing: House Alcohol intake: current Patient Tobacco Use Status: Never used Tobacco e-Cigarette/Vaping Use: Never Used Second Hand Smoke Exposure: No Advance Directives: No Advance Directives Information Provided: Yes service: No Current occupational status: employed Current occupation: [employer] Current occupational exposures/hazards: No Cognitive needs: No Hearing needs: No Vision needs: Yes Meds Allergies Allergy/AdvReac Type Severity Reaction Status Date / Time No Known Allergies Allergy Verified 05/26/23 20:12 Home Medications Medication Instructions Recorded Confirmed Last Taken Type timolol maleate 0.5 % eye drops 1 drp ophthalmic (eye) BID 07/15/21 03/10/23 Unknown History aspirin 81 mg tablet,delayed 81 mg PO DAILY 12/10/22 03/10/23 Unknown History release (Adult Low Dose Aspirin) Exam Airway Mallampati Class: Patient Non-Cooperative TM Dist: >3cm Neck ROM: Limited Heart: rrr Lungs: cta Assessment and Plan Assessment Anesthesia Assessment: Anesthesia Plan Discussed Final Anesthetic Review Family History of Problems with Anesthesia: No History of Problems with Anesthesia: No NPO: Yes ASA Class: III Final Preanesthetic Review: No Changes in Pt Med Stat, Meds/Allgs Chart Reviewed, Consent Obtained/Reviewed and Anes Risks/Benef Reviewed Patient Risk: Intermediate Procedure Risk: Low Anesthetic Plan Anesthetic Plan: GA and Agree w/ Assess. and Plan Disposition: Standard PACU
[2023-06-23] VITALS (7 sets, daily range): BP systolic 138–192; BP diastolic 67–79; PULSE 59–65; RESP 15–18; TEMP 36.1–36.6; O2SAT 95–99; BMI 27.0
--- NOTE | ~2023-06-23 | CT_ITS ---
History: 68-year-old male with 2.5 cm right renal mass that is suspicious for renal cell cancer. Procedure performed: 1. CT-guided core biopsy of right renal mass [employer] Set Up Operator: Corbin Mcadams MD FS Anesthesia: General; 8 mL 1% lidocaine Specimen: Two 20-gauge core specimens Drain: 5 Russian Yueh catheter Estimated blood loss: Minimal Complications: None Procedure in detail: Informed and written consent was obtained and placed in patient's chart. The patient was positioned prone on the CT examination table. Preliminary CT scan of the patient's abdomen revealed a 2.5 cm hypodense mass that is exophytic projecting somewhat anteriorly from the right midpole of the kidney. We initially intended to perform a cryoablation. However, the colon was immediately adjacent to the kidney. Therefore, we wanted to attempt hydrodissection. We noted the location on the skin for the planned placement of the Yueh catheter for hydrodissection. The skin was anesthetized as was the deep soft tissues with 1% lidocaine. A small incision was made in the skin with a #[address] guidance, a Yueh needle catheter was advanced between the mass and the ascending colon. We then infused a total of 500 mL of normal saline, but unfortunately despite optimal positioning of the Yueh catheter, the fluid simply migrated anteriorly and failed to separate the kidney from the colon. We then repositioned the patient in the left lateral decubitus position and infused additional fluid, but this did not improve separation of the colon from the mass. In addition, there was fairly close proximity of the posterior right pleural reflection. Based upon the absence of a known tissue diagnosis and the inherent risks to the lung and bowel with performing a cryoablation, we felt that the risk exceeded the benefit. Instead, as discussed with the patient's urologist, Dr. Gayle, we opted to perform a biopsy instead. We marked the skin at the planned access site for biopsy. 1% lidocaine was injected subcutaneously and to the deep soft tissues at the planned biopsy site. A new incision was made with a #11 blade. We then advanced a 19-gauge coaxial needle to the proximal edge of the mass. Through the coaxial needle, two 20-gauge core specimens were obtained. Pathology confirmed adequate tissue for diagnosis. A Gelfoam slurry was then injected through the coaxial needle and the coaxial needle was removed. A sterile dressing was applied. Summary: Aborted attempt for a CT-guided cryoablation based upon close proximity of the colon and the right pleural reflection. We attempted a hydrodissection and despite optimal catheter placement, the colon and the mass did not separate adequately from one another. Therefore, the cryoablation was felt to be too risky from the standpoint of a potential injury to the colon. For these reasons, a CT-guided biopsy was performed alone. The plan was conferred with the patient's urologist, Dr. Gayle. Further plans will be made following definitive diagnosis of the mass.
[2023-06-23 12:50] LABS: Glucose, Whole Blood 164 mg/dL (60-115)
[2023-06-23 12:54] LABS: Anion Gap 12 (12-20); Blood Urea Nitrogen 15 mg/dL (9-16); Carbon Dioxide 25 mmol/L (22-29); Chloride 107 mmol/L (96-108); Creatinine Clr Calc Pharmacy 89.7; Estimated Glomerular Filt Rate > 60; Potassium 3.9 mmol/L (3.3-5.1); Sodium 140 mmol/L (135-145)
[2023-06-23] MEDS: Lactated Ringers 1,000 ML 100 ML IVCONT (12:57)
--- NOTE | 2023-06-23 13:11 | ECG_ITS ---
Test Reason : PREOP Blood Pressure : / mmHG Vent. Rate : 071 BPM Atrial Rate : 071 BPM P-R Int : 150 ms QRS Dur : 140 ms QT Int : 408 ms P-R-T Axes : 007 -31 032 degrees QTc Int : 443 ms Normal sinus rhythm Left axis deviation Right bundle branch block Abnormal ECG When compared with ECG of 31-MAY-2020 15:46, No significant change was found Referred By: Shashank Hawkins Electronically Signed By:STEVE DAVISON MD
--- NOTE | 2023-06-23 13:34 | PC.NURSE ---
Laboratory at bedside drawing blood for preop labs. During intake, this RN noticed that only chemistry had been collected despite all lab orders being in. Call placed to lab again to return to preop to draw the rest. Dr. Ivory at bedside and made aware that only chem was resulted. Lab back and steve the rest. Radiology to take patient without all labs resulted, okay per him. Keri Dale RN aware. Dr. Hawkins at bedside and made aware of SB with RBBB on monitor. No EKG on file for comparison. New order for EKG. EKG completed and showing SR with RBBB. Okay to proceed with surgery.
[2023-06-23 13:49] LABS: MANUAL DIFF FLAG NO
[2023-06-23 13:58] LABS: Basophils Percent Auto 0.3 % (0-2); Eosinophils Absolute Auto 0.1 X10*3/uL (0.0-0.4); Eosinophils Percent Auto 1.1 % (0-4); Hematocrit 37.5 % (42.0-52.0); Hemoglobin 12.7 g/dl (14.0-18.0); Imm Gran Abs Auto 0.02 X10*3/uL (0.00-0.03); Imm Gran Pct Auto 0.3 % (0.0-0.4); Lymphocytes Absolute Auto 1.9 X10*3/uL (1.2-4.9); Lymphocytes Percent Auto 25.1 % (20-40); Mean Corpuscular HGB Conc 33.9 g/dl (31.0-36.0); Mean Corpuscular Hemoglobin 29.5 pg (27.0-33.0); Mean Platelet Volume 10.6 fL (9.4-12.4); Monocytes Absolute Auto 0.8 X10*3/uL (0.1-1.2); Monocytes Percent Auto 10.5 % (2-11); Neutrophils Absolute Auto 4.7 x10*3/uL (2.0-8.3); Neutrophils Percent Auto 62.7 % (45-73); Platelet Count 233 X10*3/uL (160-400); Red Blood Count 4.31 X10*6/uL (4.60-5.80); Red Cell Distribution Width 12.2 % (11.0-16.0); White Blood Count 7.5 X10*3/uL (4.8-10.8)
[2023-06-23 14:11] LABS: INTERNATIONAL NORM RATIO 0.9 (0.9-1.1); Prothrombin Time 11.1 SEC (11.1-13.3)
[2023-06-23] MEDS: Acetaminophen 325 MG TABLET 650 MG PO (17:56)
== END 2023-06-23 18:30 | disposition home or self-care (01) ==
LOC: HO.SSS 11:33
PROVIDERS: Radiology Diagnostic Radiology; PCP Internal Medicine; Visit Provider Radiology Vascular & Interventional Radiology
DX: N28.89 Other specified disorders of kidney and ureter (principal); N20.0 Calculus of kidney; N28.1 Cyst of kidney, acquired; N40.1 Benign prostatic hyperplasia with lower urinary tract symptoms; R33.8 Other retention of urine; R35.0 Frequency of micturition; E11.69 Type 2 diabetes mellitus with other specified complication; R80.9 Proteinuria, unspecified; D64.9 Anemia, unspecified; I10 Essential (primary) hypertension; E55.9 Vitamin D deficiency, unspecified; J45.909 Unspecified asthma, uncomplicated; Z79.899 Other long term (current) drug therapy; Z79.84 Long term (current) use of oral hypoglycemic drugs; Z79.82 Long term (current) use of aspirin
CPT/HCPCS: 36415; 50200; 50593; 77012; 77013; 80051; 82565; 82947; 84520; 85025; 85610; 85730; 88305; 88333; 93005; C1729; J0690; J2250; J2371

== ENCOUNTER → 2023-06-23 14:09 | Outpatient (BNV) | payer BC, SELFPAY | PROVIDERS: PCP Internal Medicine; Visit Provider Radiology Vascular & Interventional Radiology | DX: N28.89 Other specified disorders of kidney and ureter (principal) | CPT/HCPCS: 50200; 77012 ==

== ENCOUNTER 2023-07-23 09:01 | Outpatient (REF) | payer BC, SELFPAY ==
[2023-07-23 11:12] LABS: MANUAL DIFF FLAG NO
[2023-07-23 11:16] LABS: Basophils Percent Auto 0.4 % (0-2); Eosinophils Absolute Auto 0.1 X10*3/uL (0.0-0.4); Eosinophils Percent Auto 1.4 % (0-4); Hematocrit 37.6 % (42.0-52.0); Hemoglobin 12.6 g/dl (14.0-18.0); Imm Gran Abs Auto 0.01 X10*3/uL (0.00-0.03); Imm Gran Pct Auto 0.2 % (0.0-0.4); Lymphocytes Absolute Auto 1.5 X10*3/uL (1.2-4.9); Lymphocytes Percent Auto 26.9 % (20-40); Mean Corpuscular HGB Conc 33.5 g/dl (31.0-36.0); Mean Corpuscular Hemoglobin 29.4 pg (27.0-33.0); Mean Corpuscular Volume 87.9 fL (80.0-98.0); Monocytes Absolute Auto 0.6 X10*3/uL (0.1-1.2); Monocytes Percent Auto 10.3 % (2-11); Neutrophils Absolute Auto 3.4 x10*3/uL (2.0-8.3); Neutrophils Percent Auto 60.8 % (45-73); Platelet Count 207 X10*3/uL (160-400); Red Blood Count 4.28 X10*6/uL (4.60-5.80); Red Cell Distribution Width 12.2 % (11.0-16.0); White Blood Count 5.6 X10*3/uL (4.8-10.8)
[2023-07-23 11:21] LABS: Estimated Average Glucose 189 mg/dL; Hemoglobin A1c % 8.2 % (<6.0)
[2023-07-23 11:53] LABS: Alanine Aminotransferase 7 U/L (0-40); Anion Gap 9 (12-20); Aspartate Amino Transferase 15 U/L (5-37); Blood Urea Nitrogen 9 mg/dL (9-16); Calcium 9.2 mg/dL (8.4-10.2); Carbon Dioxide 28 mmol/L (22-29); Chloride 106 mmol/L (96-108); Cholesterol 185 mg/dL (<200); Estimated Glomerular Filt Rate > 60; Glucose Fasting 221 mg/dL (60-99); HDL Cholesterol 48 mg/dL (>40); Iron 85 mcg/dL (45-160); LDL Cholesterol Calculated 116 mg/dL (<100); Percent Iron Saturation 39 % (15-50); Sodium 139 mmol/L (135-145); Total Iron Binding Capacity 216 mcg/dL (228-428); Triglycerides 105 mg/dL (<150); Unsaturated Iron Binding 131 ug/dL
[2023-07-23 11:56] LABS: Vitamin D 25-OH Total 94.9 ng/mL (>30)
== END 2023-07-23 09:02 | disposition home or self-care (01) ==
LOC: HO.HMGCLDS 09:01
PROVIDERS: PCP Internal Medicine; Visit Provider Internal Medicine
DX: E11.29 Type 2 diabetes mellitus with other diabetic kidney complication (principal); R80.9 Proteinuria, unspecified; I10 Essential (primary) hypertension; E78.5 Hyperlipidemia, unspecified; D64.9 Anemia, unspecified; Z86.39 Personal history of other endocrine, nutritional and metabolic disease
CPT/HCPCS: 36415; 80048; 80061; 82306; 83036; 83540; 84450; 84460; 85025

== ENCOUNTER 2023-08-06 15:54 | Outpatient (AMB) | payer BC, SELFPAY ==
--- NOTE | 2023-08-06 16:27 | MHC.PC.OV ---
Vital Signs 08/06/23 16:29 Height 5 ft 9 in Weight 168 lb BMI 24.8 BP 120/75 Blood Pressure Location Lt brachial Position Sitting Pulse 76 Pulse Source Pulse Oximeter Pulse Oximetry (%) 98 Oxygen Delivery Method Room Air Intake Visit Reasons: FMLA Intake Note: Pt is here to have his FMLA paper work filled out Allergies No Known Allergies Allergy (Verified 10/15/23 11:03) Medication List - Last Reconciled 08/06/23 by Jessica Jones MD acetaminophen (Tylenol) 650 mg PO Q6H PRN albuterol sulfate 90 mcg/actuation 2 puffs inhalation Q6H PRN atorvastatin 20 mg PO DAILY blood sugar diagnostic ([employer] Verio test strips) Check blood sugar q.a.m. before breakfast every morning; 90 days blood-glucose meter ([employer] Verio Meter) As directed cholecalciferol (vitamin D3) 1,250 mcg PO QWEEK 3 months finasteride 5 mg PO DAILY glipizide 5 mg PO BID lancets ([employer] Delica Plus Lancet) Test blood sugar once daily lisinopril 5 mg PO DAILY metformin 1,000 mg PO Q12H sildenafil 100 mg PO DAILY PRN 30 days terazosin 10 mg (2 x 5 mg) PO BEDTIME 90 days timolol maleate 0.5% 1 drp ophthalmic (eye) BID Tobacco use date assessed: 08/06/23 Fall risk assessment: No Falls in past year Last assessed Fall Risk: 08/06/23 HPI FMLA HPI Details 68-year-old male with diabetes mellitus, history of kidney stone, benign prostatic hyperplasia, hypertension, dyslipidemia, and recently diagnosed papillary renal cell CA, here today requesting an FMLA application completed. He is currently out of work, being followed by Urology and is to be scheduled for robotic right partial nephrectomy in the near future. 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 Social History Housing: House Alcohol intake: current Alcohol intake frequency: does not drink Patient Tobacco Use Status: Never used Tobacco e-Cigarette/Vaping Use: Never Used Second Hand Smoke Exposure: No service: No Current occupational status: employed Current occupation: [employer] Current occupational exposures/hazards: No Cognitive needs: No Hearing needs: No Vision needs: Yes Questionnaire Thrive Questionnaire Date Thrive assessed: 12/10/22 DANIELLE-7 AMB Questionnaire DANIELLE-7 Date DANIELLE - 7 assessed: 12/10/22 Source: Developed by Drs. Efe Miller, Angelique Mckeon, Chet Gómez and colleagues, with an educational irina from [employer]. Review of Systems Const Reports no additional complaints Eyes Reports no additional complaints ENT Reports no additional complaints and Reports Normal hearing present Card Denies chest pain at rest, Denies chest pain with activity, Denies irregular heart rhythm, Denies lightheadedness and Denies dyspnea Resp Denies cough and Denies dyspnea GI Denies abdominal pain, Denies bloating, Denies change in bowel habits and Denies heartburn Reports as per HPI Musc Reports no additional complaints Skin/Breast Denies rash Neuro Reports no additional complaints, Reports Normal hearing present and Denies Sensory deficit (Neuro) Endo Reports no additional complaints Tae/Lymph Denies easy bleeding and Denies easy bruising Aller/Immun Reports no additional complaints Physical exam (Primary Care) Vital Signs: Last Vital Signs Pulse 76 08/06/23 16:29 BP 120/75 08/06/23 16:29 Pulse Ox 98 08/06/23 16:29 Oxygen Delivery Method Room Air 08/06/23 16:29 BMI result Body Mass Index 24.8 Tobacco/Smoking Status: Tobacco use Status Tobacco use date assessed 08/06/23 08/06/23 16:35 Patient Tobacco Use Status Never used Tobacco 08/06/23 16:35 e-Cigarette/Vaping Use Never Used 08/06/23 16:35 Thrive Assessment: Date of Thrive Assessment Date Thrive assessed 12/10/22 08/06/23 16:35 Const General: comfortable and no acute distress Nutritional Appearance: average body habitus Orientation/consciousness: patient oriented x3 Limitations: no limitations HENMT Ears: external ears normal General nose exam: Normal external nose present Face and sinus: Yes face symmetric Mouth: oropharynx normal and moist mucous membranes Eyes Conjunctivae: conjunctivae normal Sclerae: sclerae normal Pupils: Equal, round and reactive pupils present EOM: EOMs intact bilaterally Neck Neck: Yes full ROM and Yes no lymphadenopathy Thyroid: Thyroid normal Resp Effort & Inspection: normal respiratory effort and able to speak in complete sentences Auscultation: clear to auscultation bilaterally Cardio Jugular venous distension: no JVD Rate: regular rate Rhythm: regular rhythm Heart sounds: S1 normal heart sound present and S2 normal heart sound present GI Inspection: Yes normal to inspection Palpation (GI): Soft to palpation Auscultation: normal bowel sounds General: Yes no CVA tenderness Back/Spine/Pelvis Back: no CVA tenderness Skin General skin exam: no rashes or lesions noted Neuro General: patient oriented x3, gait normal, moves all extremities, Normal light touch and pain sensation, no focal motor deficits and CN's II-XI intact bilaterally Cranial nerves: Yes Equal, round and reactive pupils present and Yes Normal hearing present Cognition (Neuro): normal cognition Gait exam (Neuro): Normal gait present Motor exam (neuro): 5/5 motor strength present throughout Sensory Exam: No Sensory deficit (Neuro) Extrem General: Yes full ROM, Yes no joint enlargement, Yes no pedal edema, Yes no calf tenderness and Yes normal gait Results Reviewed Results Reviewed: ENTERED: 07/23/[address]: ORDERED: CBC Auto Diff Test Result Flag Reference Site WBC 5.6 4.8-10.8 X10*3/uL RBC 4.28 L 4.60-5.80 X10*6/uL HGB 12.6 L 14.0-18.0 g/dl HCT 37.6 L 42.0-52.0 % MCV 87.9 80.0-98.0 fL MCH 29.4 27.0-33.0 pg MCHC 33.5 31.0-36.0 g/dl RDW 12.2 11.0-16.0 % PLT 207 160-400 X10*3/uL SPEC : [id number] SAUD: 07/23/23 STATUS: COMP REQ : [id number] RECD: 07/23/231059 SUBM DR: Jessica Jones MD COMP: 07/23/23 ENTERED: 07/23/23 [facility]: ORDERED: Met Prof Fast, IRON PROF, AST, ALT, Lipid Panel, Vitamin D 25-OH Test Result Flag Reference Sodium 139 135-145 mmol/L Potassium 4.0 3.3-5.1 mmol/L CL 106 96-108 mmol/L CO2 28 22-29 mmol/L Gap 9 L 12-20 BUN 9 9-16 mg/dL Creat 0.85 0.5-1.4 mg/dL EGFR > 60 NOTE: For -[place] individuals, multiply the result by 1.210. Chronic Kidney Disease: Estimated GFR < 60 mL/min/1.73m2 Severe Kidney Disease: Estimated GFR < 15 mL/min/1.73m2 FBS 221 H 60-99 mg/dL A fasting glucose of 126 mg/dl or greater on more than one occasion is considered diagnostic of diabetes. CA 9.2 8.4-10.2 mg/dL Iron 85 45-160 mcg/dL TIBC 216 L 228-428 mcg/dL Saturation 39 15-50 % UIBC 131 ug/dL AST (GOT) 15 5-37 U/L ALT (GPT) 7 0-40 U/L Triglyceride 105 <150 mg/dL Desirable Triglyceride: less than 150 mg/dL Borderline High Triglyceride 150-199 mg/dL High Triglyceride: 200-499 mg/dL Very High Triglyceride: greater than or equal to 5OO mg/dL Cholesterol 185 <200 mg/dL Desirable Cholesterol: less than 200 mg/dL Borderline High Cholesterol: 200-239 mg/dL High Cholesterol: greater than 239 mg/dL LDL Calculated 116 H <100 mg/dL Desirable LDL: less than 100 mg/dL Near Optimal/Above Optimal LDL: 110-129 mg/dL Borderline High LDL: 130-159 mg/dL High LDL: 160-189 mg/dL Very High LDL: greater than or equal to 190 mg/dL HDL 48 >40 mg/dL Desirable HDL: greater than 40 mg/dL Note: This HDL assay may give artificially low results in patients with liver disease. Vit D 25-OH Tot 94.9 >30 ng/mL Health Based Reference Values* < 20 ng/mL Deficient 20-30 ng/mL Insufficient > 30 ng/mL Sufficient Laboratory Tests 07/23/23 09:01 Estimat Average Glucose 189 Hemoglobin A1c % 8.2 H Assessment and Plan Assessment & Plan (1) Papillary renal cell carcinoma: Code(s): C64.9 - Malignant neoplasm of unspecified kidney, except renal pelvis Plan: Followed by Urology, is to be scheduled for optic right partial nephrectomy in the near future. FMLA form completed (2) Anemia: Code(s): D64.9 - Anemia, unspecified Qualifiers: Anemia type: unspecified type Qualified Code(s): D64.9 - Anemia, unspecified Plan: Likely due to anemia chronic disease (3) Diabetes mellitus with microalbuminuria, without long-term current use of insulin: Code(s): E11.29 - Type 2 diabetes mellitus with other diabetic kidney complication; R80.9 - Proteinuria, unspecified Plan: Diabetes mellitus not well controlled with hemoglobin A1c at 8.2 %. Continue with metformin 1000 mg twice a day, glipizide 5 mg twice a day, Farxiga 10 mg daily, stressed importance of following recommended diet and get yearly eye exams for retinopathy screening, (4) Essential hypertension: Code(s): I10 - Essential (primary) hypertension Plan: Blood pressure at goal of less than 130/80. Continue with current medication. Reinforced importance of following a low sodium diet, getting regular exercise, and lowering stress levels. (5) Dyslipidemia: Code(s): E78.5 - Hyperlipidemia, unspecified Plan: Reviewed recent fasting lipid profile with patient with LDL not at goal. Continue with atorvastatin , but dose increased from 20 to 40 mg daily , in addition to adherence to low-cholesterol diet and regular exercise, at least 30 minutes 3 to 4 times a week. Continue to make healthy food choices, eat more fruits, vegetables, whole grains, wild caught fish and low-fat dairy. Limit amount of meat and fried or fatty food products, as well as processed foods and fast foods. Follow-up scheduled with repeat fasting lipid panel in 3 months. Orders: Orders Basic Metabolic Panel Fasting 10/12/23 C64.9 - Malignant neoplasm of unspecified kidney, except renal pelvis, D64.9 - Anemia, unspecified, E11.29 - Type 2 diabetes mellitus with other diabetic kidney complication, R80.9 - Proteinuria, unspecified, I10 - Essential (primary) hypertension, E78.5 - Hyperlipidemia, unspecified, Z86.39 - Personal history of other endocrine, nutritional and metabolic disease Aspartate Amino Transferase 10/12/23 C64.9 - Malignant neoplasm of unspecified kidney, except renal pelvis, D64.9 - Anemia, unspecified, E11.29 - Type 2 diabetes mellitus with other diabetic kidney complication, R80.9 - Proteinuria, unspecified, I10 - Essential (primary) hypertension, E78.5 - Hyperlipidemia, unspecified, Z86.39 - Personal history of other endocrine, nutritional and metabolic disease Alanine Aminotransferase 10/12/23 C64.9 - Malignant neoplasm of unspecified kidney, except renal pelvis, D64.9 - Anemia, unspecified, E11.29 - Type 2 diabetes mellitus with other diabetic kidney complication, R80.9 - Proteinuria, unspecified, I10 - Essential (primary) hypertension, E78.5 - Hyperlipidemia, unspecified, Z86.39 - Personal history of other endocrine, nutritional and metabolic disease Hemoglobin A1c 10/12/23 C64.9 - Malignant neoplasm of unspecified kidney, except renal pelvis, D64.9 - Anemia, unspecified, E11.29 - Type 2 diabetes mellitus with other diabetic kidney complication, R80.9 - Proteinuria, unspecified, I10 - Essential (primary) hypertension, E78.5 - Hyperlipidemia, unspecified, Z86.39 - Personal history of other endocrine, nutritional and metabolic disease Microalbumin, Random (w Creat) 10/12/23 C64.9 - Malignant neoplasm of unspecified kidney, except renal pelvis, D64.9 - Anemia, unspecified, E11.29 - Type 2 diabetes mellitus with other diabetic kidney complication, R80.9 - Proteinuria, unspecified, I10 - Essential (primary) hypertension, E78.5 - Hyperlipidemia, unspecified, Z86.39 - Personal history of other endocrine, nutritional and metabolic disease Vitamin D 25-OH Total 10/12/23 C64.9 - Malignant neoplasm of unspecified kidney, except renal pelvis, D64.9 - Anemia, unspecified, E11.29 - Type 2 diabetes mellitus with other diabetic kidney complication, R80.9 - Proteinuria, unspecified, I10 - Essential (primary) hypertension, E78.5 - Hyperlipidemia, unspecified, Z86.39 - Personal history of other endocrine, nutritional and metabolic disease Complete Blood Count Auto Diff 10/12/23 C64.9 - Malignant neoplasm of unspecified kidney, except renal pelvis, D64.9 - Anemia, unspecified, E11.29 - Type 2 diabetes mellitus with other diabetic kidney complication, R80.9 - Proteinuria, unspecified, I10 - Essential (primary) hypertension, E78.5 - Hyperlipidemia, unspecified, Z86.39 - Personal history of other endocrine, nutritional and metabolic disease Lipid Panel 10/12/23 C64.9 - Malignant neoplasm of unspecified kidney, except renal pelvis, D64.9 - Anemia, unspecified, E11.29 - Type 2 diabetes mellitus with other diabetic kidney complication, R80.9 - Proteinuria, unspecified, I10 - Essential (primary) hypertension, E78.5 - Hyperlipidemia, unspecified, Z86.39 - Personal history of other endocrine, nutritional and metabolic disease Medications: New dapagliflozin propanediol (Farxiga) 10 mg PO DAILY 30 tabs 4RF Changed From atorvastatin 20 mg PO DAILY 90 tabs 2RF To atorvastatin 40 mg PO DAILY 90 tabs 2RF Coding Level of Care Code Est Pt Level 4 (78776) Diagnoses Papillary renal cell carcinoma C64.9 Anemia, unspecified type D64.9 Anemia type: unspecified type Diabetes mellitus with microalbuminuria, without long-term current use of insulin E11.29; R80.9 Essential hypertension I10 Dyslipidemia E78.5
[2023-08-06 16:29] VITALS: BP 120/75; PULSE 76; O2SAT 98; BMI 24.8
== END 2023-08-06 17:13 | disposition home or self-care (01) ==
LOC: HO.HMGC 15:54
PROVIDERS: PCP Internal Medicine; Visit Provider Internal Medicine
DX: C64.9 Malignant neoplasm of unspecified kidney, except renal pelvis (principal); D64.9 Anemia, unspecified; E11.29 Type 2 diabetes mellitus with other diabetic kidney complication; R80.9 Proteinuria, unspecified; I10 Essential (primary) hypertension; E78.5 Hyperlipidemia, unspecified
CPT/HCPCS: 99214

== ENCOUNTER → 2023-10-12 09:56 | Outpatient (REF) | payer OTHER, SELFPAY ==
--- NOTE | 2023-10-12 10:21 | ECG_ITS ---
Test Reason : C64.9 Blood Pressure : / mmHG Vent. Rate : 057 BPM Atrial Rate : 057 BPM P-R Int : 162 ms QRS Dur : 146 ms QT Int : 424 ms P-R-T Axes : 009 -31 026 degrees QTc Int : 412 ms Sinus bradycardia Left axis deviation Right bundle branch block Abnormal ECG When compared with ECG of 23-JUN-2023 13:12, No significant change was found Referred By: Jessica Jones Electronically Signed By:BLADE ALDANA
== END ==
LOC: HO.CARD 09:56
PROVIDERS: PCP Internal Medicine; Visit Provider Internal Medicine
DX: Z01.818 Encounter for other preprocedural examination (principal); C64.9 Malignant neoplasm of unspecified kidney, except renal pelvis
CPT/HCPCS: 93005

== ENCOUNTER → 2023-10-12 10:21 | Outpatient (BNV) | payer OTHER, SELFPAY | PROVIDERS: PCP Internal Medicine; Visit Provider Internal Medicine | DX: R00.1 Bradycardia, unspecified (principal); I45.10 Unspecified right bundle-branch block; C64.9 Malignant neoplasm of unspecified kidney, except renal pelvis | CPT/HCPCS: 93010 ==

== ENCOUNTER 2023-10-15 10:05 | Outpatient (AMB) | payer OTHER, SELFPAY ==
[2023-10-15 10:45] VITALS: BP 120/62; PULSE 68; O2SAT 98; BMI 24.4
--- NOTE | 2023-10-15 10:45 | A.OFFPC_ITS ---
Vital Signs 10/15/23 10:45 Height 5 ft 9 in Weight 165 lb BMI 24.4 BP 120/62 Blood Pressure Location Lt brachial Position Sitting Pulse 68 Pulse Source Pulse Oximeter Pulse Oximetry (%) 98 Oxygen Delivery Method Room Air Intake Visit Reasons: nephrectomy partial right side Intake Note: Pt is here today for his pre-op for laparoscopic Rt side partial nephrectomy with Dr. Collado 10/27/23 Allergies No Known Allergies Allergy (Verified 10/15/23 11:03) Medication List - Last Reconciled 10/15/23 by Jessica Jones MD acetaminophen (Tylenol) 650 mg PO Q6H PRN albuterol sulfate 90 mcg/actuation 2 puffs inhalation Q6H PRN atorvastatin 40 mg PO DAILY blood sugar diagnostic ([employer] Verio test strips) Check blood sugar q.a.m. before breakfast every morning; 90 days blood-glucose meter ([email or web address] Verio Meter) As directed cholecalciferol (vitamin D3) 1,250 mcg PO QWEEK 3 months dapagliflozin propanediol (Farxiga) 10 mg PO DAILY finasteride 5 mg PO DAILY glipizide 5 mg PO BID lancets (Fiesta FrogTouch Delica Plus Lancet) Test blood sugar once daily lisinopril 5 mg PO DAILY metformin 1,000 mg PO Q12H sildenafil 100 mg PO DAILY PRN 30 days terazosin 10 mg (2 x 5 mg) PO BEDTIME 90 days timolol maleate 0.5% 1 drp ophthalmic (eye) BID Tobacco use date assessed: 10/15/23 Fall risk assessment: No Falls in past year Last assessed Fall Risk: 10/15/23 Dental Screening Dental Screen Date: 10/15/23 Did you have a dental visit in the last 12 months?: Yes Did you have a dental problem in the last 6 months where you did not have access to dental care?: No Was dental information given to patient?: Patient has dentist HPI nephrectomy partial right side HPI Details 68-year-old male with hyperlipidemia, di abetes mellitus, hypertension and 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 Collado 10/27/23. He has been feeling well, with diabetes mellitus fairly controlled on present treatment. Recent fasting labs also showed presence of mild anemia, with no leukocytosis and normal platelet count. Electrolytes are within normal limits. Latest EKG done 10/13/2023 showed normal Sinus bradycardia with Left axis deviation, Right bundle branch block. When compared with ECG of 23-JUN-2023 no significant change was found. He currently is feeling well with no complaints at present time. 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 Social History Housing: House Alcohol intake: current Alcohol intake frequency: does not drink Patient Tobacco Use Status: Never used Tobacco e-Cigarette/Vaping Use: Never Used Second Hand Smoke Exposure: No service: No Current occupational status: employed Current occupation: [employer] Current occupational exposures/hazards: No Cognitive needs: No Hearing needs: No Vision needs: Yes Questionnaire Thrive Questionnaire Date Thrive assessed: 12/10/22 AUDIT C Alcohol Use Questionnaire (AUDIT-C) 1. How often do you have a drink containing alcohol?: Never Total Score: 0 DANIELLE-7 AMB Questionnaire DANIELLE-7 Date DANIELLE - 7 assessed: 12/10/22 Source: Developed by Drs. Efe Miller, Angelique Mckeon, Chet Gómez and colleagues, with an educational irina from [employer]. Review of Systems Const Reports as per HPI Eyes Reports as per HPI ENT Reports no additional complaints and Reports Normal hearing present Card Reports as per HPI Resp Reports as per HPI GI Reports no additional complaints Reports as per HPI Musc Reports no additional complaints Skin/Breast Denies rash Neuro Reports no additional complaints, Reports Normal hearing present and Denies Sensory deficit (Neuro) Psych Reports no additional complaints Endo Reports as per HPI Tae/Lymph Reports no additional complaints Aller/Immun Reports no additional complaints Physical exam (Primary Care) Vital Signs: Last Vital Signs Pulse 68 10/15/23 10:45 BP 120/62 10/15/23 10:45 Pulse Ox 98 10/15/23 10:45 Oxygen Delivery Method Room Air 10/15/23 10:45 BMI result Body Mass Index 24.4 Tobacco/Smoking Status: Tobacco use Status Tobacco use date assessed 10/15/23 10/15/23 10:49 Patient Tobacco Use Status Never used Tobacco 10/15/23 10:49 e-Cigarette/Vaping Use Never Used 10/15/23 10:49 Thrive Assessment: Date of Thrive Assessment Date Thrive assessed 12/10/22 10/15/23 10:49 Const General: comfortable and no acute distress Nutritional Appearance: average body habitus Orientation/consciousness: patient oriented x3 Limitations: no limitations HENMT Head: Yes normocephalic Ears: hearing grossly normal bilaterally and external ears normal General nose exam: Normal external nose present Face and sinus: Yes face symmetric Mouth: oropharynx normal and moist mucous membranes Eyes Conjunctivae: conjunctivae normal Sclerae: sclerae normal Pupils: Equal, round and reactive pupils present EOM: EOMs intact bilaterally Neck Neck: Yes full ROM and Yes no lymphadenopathy Thyroid: Thyroid normal Carotids: normal carotid upstroke Resp Effort & Inspection: normal respiratory effort and able to speak in complete sentences Auscultation: clear to auscultation bilaterally Cardio Other: S1-S2 present regular rate and rhythm Jugular venous distension: no JVD Rate: regular rate Rhythm: regular rhythm Heart sounds: S1 normal heart sound present and S2 normal heart sound present GI Inspection: Yes normal to inspection Palpation (GI): Soft to palpation Auscultation: normal bowel sounds General: Yes no CVA tenderness Back/Spine/Pelvis Back: no CVA tenderness Skin General skin exam: no rashes or lesions noted Neuro General: patient oriented x3, gait normal, moves all extremities, Normal light touch and pain sensation, no focal motor deficits and CN's II-XI intact bilaterally Cranial nerves: Yes Equal, round and reactive pupils present and Yes Normal hearing present Cognition (Neuro): normal cognition Gait exam (Neuro): Normal gait present Motor exam (neuro): 5/5 motor strength present throughout Sensory Exam: No Sensory deficit (Neuro) Extrem General: Yes full ROM, Yes no joint enlargement, Yes no pedal edema, Yes no calf tenderness and Yes normal gait Psych Appearance: grossly normal Mental Status: mental status grossly normal Speech and movement: Normal speech and movement present Affect: normal affect Attitude: cooperative Thought process: Normal thought process present Thought content: Normal thought content present Results AMB Hemoglobin A1c AMB Hemoglobin A1c 7.8 % Last Edit by Celestina Godinez CMA on 10/15/23 11:27 Results Reviewed Results Reviewed: Laboratory Last Values Hgb A1c (Clinic) 7.8 % (4.0-6.0) H 10/15/23 11:11 RUN: 10/19/23 0023 PAGE 1 [facility] [address] [place] [id number] Vice President Network: Rao Oleary M.D. Specimen Inquiry Name: Kai Guillen Age/Sex: 68/M : 1955 Unit#: [id number] Attend Dr: Jessica Jones MD Re10/16/23 Status: DEP REF Location: [facility] Disch: SPEC : [id number] SAUD: 10/16/23 STATUS: COMP REQ : [id number] RECD: 10/16/[address]: Jessica Jones MD COMP: 10/16/23 ENTERED: 10/16/[address]: ORDERED: Met Prof Fast, AST, ALT, Lipid Panel, Vitamin D 25-OH Test Result Flag Reference Sodium 139 135-145 mmol/L Potassium 4.0 3.3-5.1 mmol/L CL 108 96-108 mmol/L CO2 25 22-29 mmol/L Gap 10 L 12-20 BUN 14 9-16 mg/dL Creat 0.98 0.5-1.4 mg/dL EGFR > 60 NOTE: For -[place] individuals, multiply the result by 1.210. Chronic Kidney Disease: Estimated GFR < 60 mL/min/1.73m2 Severe Kidney Disease: Estimated GFR < 15 mL/min/1.73m2 FBS 178 H 60-99 mg/dL A fasting glucose of 126 mg/dl or greater on more than one occasion is considered diagnostic of diabetes. CA 9.5 8.4-10.2 mg/dL AST (GOT) 15 5-37 U/L ALT (GPT) 10 0-40 U/L Triglyceride 109 <150 mg/dL Desirable Triglyceride: less than 150 mg/dL Borderline High Triglyceride 150-199 mg/dL High Triglyceride: 200-499 mg/dL Very High Triglyceride: greater than or equal to 5OO mg/dL Cholesterol 186 <200 mg/dL Desirable Cholesterol: less than 200 mg/dL Borderline High Cholesterol: 200-239 mg/dL High Cholesterol: greater than 239 mg/dL LDL Calculated 111 H <100 mg/dL Desirable LDL: less than 100 mg/dL Near Optimal/Above Optimal LDL: 110-129 mg/dL Borderline High LDL: 130-159 mg/dL High LDL: 160-189 mg/dL Very High LDL: greater than or equal to 190 mg/dL HDL 54 >40 mg/dL Desirable HDL: greater than 40 mg/dL Note: This HDL assay may give artificially low results in patients with liver disease. Vit D 25-OH Tot 124.0 >30 ng/mL Health Based Reference Values* < 20 ng/mL Deficient 20-30 ng/mL Insufficient > 30 ng/mL Sufficient Name: Kai Guillen Age/Sex: 68/M : 1955 Unit#: [id number] Attend Dr: Jessica Jones MD Re10/16/23 Status: DEP REF Location: [facility] Disch: SPEC : [id number] SAUD: 10/16/23 STATUS: COMP REQ : [id number] RECD: 10/16/[address]: Jessica Jones MD COMP: 10/16/23 ENTERED: 10/16/[address]: ORDERED: CBC Auto Diff Test Result Flag Reference WBC 5.2 4.8-10.8 X10*3/uL RBC 4.43 L 4.60-5.80 X10*6/uL HGB 13.3 L 14.0-18.0 g/dl HCT 39.2 L 42.0-52.0 % MCV 88.5 80.0-98.0 fL MCH 30.0 27.0-33.0 pg MCHC 33.9 31.0-36.0 g/dl RDW 12.6 11.0-16.0 % PLT 254 160-400 X10*3/uL MPV 10.6 9.4-12.4 fL Neut Pct Auto 62.3 45-73 % ImGran Pct Auto 0.2 0.0-0.4 % Lymp Pct Auto 24.9 20-40 % [place] Pct Auto 11.1 H 2-11 % Eos Pct Auto 1.3 0-4 % Baso Pct Auto 0.2 0-2 % NRBC Pct Auto 0.0 0.0-0.2 /100WBC ANC Neut Abs # 3.3 2.0-8.3 x10*3/uL ImGran Abs Auto 0.01 0.00-0.03 X10*3/uL Lymph Abs Auto 1.3 1.2-4.9 X10*3/uL [place] Abs Auto 0.6 0.1-1.2 X10*3/uL Eos Abs Auto 0.1 0.0-0.4 X10*3/uL Baso Abs Auto 0.0 0.0-0.2 X10*3/uL NRBC Abs Auto 0.000 0.0-0.012 X10*3/uL RUN: 10/19/23 0024 PAGE 1 [facility] [address] [place] [id number] Vice President Network: Rao Oleary M.D. Specimen Inquiry Name: Kai Guillen Felecia Age/Sex: 68/M : 1955 Unit#: [id number] Attend Dr: Jessica Jones MD Re10/16/23 Status: DEP REF Location: [facility] Disch: SPEC : [id number] SAUD: 10/16/23 STATUS: COMP REQ : [id number] RECD: 10/16/23-[address]: Jessica Jones MD COMP: 10/16/23 ENTERED: 10/16/[address]: ORDERED: MICARU Test Result Flag Reference Creat, Ur 96.59 mg/dL Microalbumin Ur 9.0 mg/L Alb/Creat Ratio 9.3 <30 ug/mg cr Albumin/Creatinine Ratio Reference Ranges: Normal: < 30 ug/mg creatinine Microalbuminuria: 30 - 300 ug/mg creatinine Clinical Albuminuria: > 300 ug/mg creatinine Date of Service: 10/12/23 Procedure(s): ECG 12 lead EKG Accession Number(s): [id number] cc: Jessica Jones MD~ Test Reason : C64.9 Blood Pressure : / mmHG Vent. Rate : 057 BPM Atrial Rate : 057 BPM P-R Int : 162 ms QRS Dur : 146 ms QT Int : 424 ms P-R-T Axes : 009 -31 026 degrees QTc Int : 412 ms Sinus bradycardia Left axis deviation Right bundle branch block Abnormal ECG When compared with ECG of 23-JUN-2023 13:12, No significant change was found Assessment and Plan Assessment & Plan (1) Preoperative examination: Code(s): Z01.818 - Encounter for other preprocedural examination Plan: Pt is a 68 year old male here for pre-op clearance for right-sided laparoscop ic partial nephrectomy scheduled on 10/27/2023. He has diabetes mellitus, hyperlipidemia and hypertension, currently stable and controlled . Preoperative examination was unremarkable, recent labs and EKG showed acceptable results. He has a low cardiac risk index for proposed surgery. (2) Papillary renal cell carcinoma: Code(s): C64.9 - Malignant neoplasm of unspecified kidney, except renal pelvis (3) Diabetes mellitus with microalbuminuria, without long-term current use of insulin: Code(s): E11.29 - Type 2 diabetes mellitus with other diabetic kidney complication; R80.9 - Proteinuria, unspecified Plan: Recent lab results reviewed with patient, hemoglobin A1c at 7.8%. Continued on metformin 1000 mg 1 tablet every 12 hours and glipizide 5 mg twice a day as well as Farxiga 10 mg daily in a.m.. Stressed importance of following recommended diet and staying active. Counseled regarding importance of yearly diabetes retinopathy screening. Patient advised to inspect feet daily, for any signs of injury, callus or infection. Compliance with diet and regular exercise again stressed. Blood pressure goal is less than 130/80, goal LDL is less than 100 and goal hemoglobin A1c is less than 7% follow-up appointment made in--3-months, after fasting labs done. (4) Essential hypertension: Code(s): I10 - Essential (primary) hypertension Plan: Blood pressure at goal of less than 130/80. Continue with current medication. Reinforced importance of following a low sodium diet, getting regular exercise, and lowering stress levels. (5) Dyslipidemia: Code(s): E78.5 - Hyperlipidemia, unspecified Plan: Reviewed recent fasting lipid profile with patient with LDL cholesterol not at goal of less than 100 mg/dL. . Continue atorvastatin 40 mg daily and stressed importance of adherence to low-cholesterol diet and regular exercise, at least 30 minutes 3 to 4 times a week. Advised patient to make healthy food choices, eat more fruits, vegetables, whole grains, wild caught fish and low-fat dairy. Limit amount of meat and fried or fatty food products, as well as processed foods and fast foods. Orders: Orders AMB Hemoglobin A1c 10/15/23 E11.29 - Type 2 diabetes mellitus with other diabetic kidney complication, R80.9 - Proteinuria, unspecified Coding Level of Care Code Est Pt Level 4 (36048) Diagnoses Preoperative examination Z01.818 Papillary renal cell carcinoma C64.9 Diabetes mellitus with microalbuminuria, without long-term current use of insulin E11.29; R80.9 Essential hypertension I10 Dyslipidemia E78.5
== END 2023-10-15 11:23 | disposition home or self-care (01) ==
PROVIDERS: PCP Internal Medicine; Visit Provider Internal Medicine
DX: E11.29 Type 2 diabetes mellitus with other diabetic kidney complication (principal); R80.9 Proteinuria, unspecified
CPT/HCPCS: 83036; 99214

== ENCOUNTER 2023-10-16 08:49 | Outpatient (REF) | payer OTHER, SELFPAY ==
[2023-10-16 11:40] LABS: MANUAL DIFF FLAG NO
[2023-10-16 11:44] LABS: Basophils Percent Auto 0.2 % (0-2); Eosinophils Absolute Auto 0.1 X10*3/uL (0.0-0.4); Eosinophils Percent Auto 1.3 % (0-4); Hematocrit 39.2 % (42.0-52.0); Hemoglobin 13.3 g/dl (14.0-18.0); Imm Gran Abs Auto 0.01 X10*3/uL (0.00-0.03); Imm Gran Pct Auto 0.2 % (0.0-0.4); Lymphocytes Absolute Auto 1.3 X10*3/uL (1.2-4.9); Lymphocytes Percent Auto 24.9 % (20-40); Mean Corpuscular HGB Conc 33.9 g/dl (31.0-36.0); Mean Corpuscular Volume 88.5 fL (80.0-98.0); Mean Platelet Volume 10.6 fL (9.4-12.4); Monocytes Absolute Auto 0.6 X10*3/uL (0.1-1.2); Monocytes Percent Auto 11.1 % (2-11); Neutrophils Absolute Auto 3.3 x10*3/uL (2.0-8.3); Neutrophils Percent Auto 62.3 % (45-73); Platelet Count 254 X10*3/uL (160-400); Red Blood Count 4.43 X10*6/uL (4.60-5.80); Red Cell Distribution Width 12.6 % (11.0-16.0); White Blood Count 5.2 X10*3/uL (4.8-10.8)
[2023-10-16 12:06] LABS: Creatinine Urine 96.59 mg/dL; Microalbum/Creatinine Ratio Ur 9.3 ug/mg cr (<30)
[2023-10-16 12:19] LABS: Alanine Aminotransferase 10 U/L (0-40); Anion Gap 10 (12-20); Aspartate Amino Transferase 15 U/L (5-37); Blood Urea Nitrogen 14 mg/dL (9-16); Calcium 9.5 mg/dL (8.4-10.2); Carbon Dioxide 25 mmol/L (22-29); Chloride 108 mmol/L (96-108); Cholesterol 186 mg/dL (<200); Estimated Glomerular Filt Rate > 60; Glucose Fasting 178 mg/dL (60-99); HDL Cholesterol 54 mg/dL (>40); LDL Cholesterol Calculated 111 mg/dL (<100); Sodium 139 mmol/L (135-145); Triglycerides 109 mg/dL (<150)
== END 2023-10-16 08:50 | disposition home or self-care (01) ==
LOC: HO.HMGCLDS 08:49
PROVIDERS: PCP Internal Medicine; Visit Provider Internal Medicine
DX: C64.9 Malignant neoplasm of unspecified kidney, except renal pelvis (principal); D64.9 Anemia, unspecified; E11.29 Type 2 diabetes mellitus with other diabetic kidney complication; R80.9 Proteinuria, unspecified; I10 Essential (primary) hypertension; E78.5 Hyperlipidemia, unspecified; Z86.39 Personal history of other endocrine, nutritional and metabolic disease
CPT/HCPCS: 36415; 80048; 80061; 82043; 82306; 82570; 84450; 84460; 85025

== ENCOUNTER 2024-01-11 08:34 | Outpatient (REF) | payer OTHER, MEDICARE, SELFPAY ==
[2024-01-11 10:47] LABS: Estimated Average Glucose 177 mg/dL; Hemoglobin A1c % 7.8 % (<6.0)
[2024-01-11 11:31] LABS: Alanine Aminotransferase 13 U/L (0-40); Aspartate Amino Transferase 16 U/L (5-37); Cholesterol 180 mg/dL (<200); HDL Cholesterol 54 mg/dL (>40); LDL Cholesterol Calculated 103 mg/dL (<100); Triglycerides 119 mg/dL (<150)
== END 2024-01-11 08:35 | disposition home or self-care (01) ==
LOC: HO.HMGCLDS 08:34
PROVIDERS: PCP Internal Medicine; Visit Provider Internal Medicine
DX: E11.29 Type 2 diabetes mellitus with other diabetic kidney complication (principal); E78.5 Hyperlipidemia, unspecified; I10 Essential (primary) hypertension; R80.9 Proteinuria, unspecified
CPT/HCPCS: 36415; 80061; 83036; 84450; 84460

== ENCOUNTER 2024-01-13 11:26 | Outpatient (AMB) | payer OTHER, SELFPAY ==
--- NOTE | 2024-01-13 12:21 | MHC.PC.OV ---
Vital Signs 01/13/24 12:23 Height 5 ft 9 in Weight 168 lb BMI 24.8 BP 128/70 Blood Pressure Location Rt brachial Position Sitting Pulse 73 Pulse Source Pulse Oximeter Pulse Oximetry (%) 98 Intake Visit Reasons: 3M F/U Allergies No Known Allergies Allergy (Verified 01/13/24 12:39) Medication List - Last Reconciled 01/13/24 by Jessica Jones MD acetaminophen (Tylenol) 650 mg PO Q6H PRN albuterol sulfate 90 mcg/actuation 2 puffs inhalation Q6H PRN atorvastatin 40 mg PO DAILY blood sugar diagnostic (Rosum Verio test strips) Check blood sugar q.a.m. before breakfast every morning; 90 days blood-glucose meter ([employer] Mobile[employer] Verio Meter) As directed cholecalciferol (vitamin D3) 1,250 mcg PO QWEEK 3 months dapagliflozin propanediol (Farxiga) 10 mg PO DAILY finasteride 5 mg PO DAILY glipizide 5 mg PO BID lancets (Nimbus LLCTouch Delica Plus Lancet) Test blood sugar once daily lisinopril 5 mg PO DAILY metformin 1,000 mg PO Q12H sildenafil 100 mg PO DAILY PRN 30 days terazosin 10 mg (2 x 5 mg) PO BEDTIME 90 days timolol maleate 0.5% 1 drp ophthalmic (eye) BID Tobacco use date assessed: 10/15/23 Dental Screening Dental Screen Date: 10/15/23 HPI 3M F/U HPI Details 68-year-old male with hyperlipidemia, diabetes mellitus, , glaucoma , hypertension and recently diagnosed with papillary renal cell carcinoma right,s/p right robotic partial nephrectomy with Dr. Collado 10/27/23, here for a follow up . He had his postoperative visit with Dr. Forman in a last month and is scheduled to go out CT scan of the abdomen pelvis every 6 months for year for surveillance./follow-up. Recent labs showed hemoglobin A1c at 7.8% and lipids are within normal limits except for LDL cholesterol at 103 mg/dL. Blood pressure stable controlled on present treatment. [facility] Medical History Papillary renal cell carcinoma Anemia Vitamin D deficiency Erectile disorder due to medical condition in male Reactive airway disease Diabetes mellitus with microalbuminuria, without long-term current use of insulin Essential hypertension Benign prostatic hyperplasia Borderline open-angle glaucoma Dyslipidemia Surgical History Hx of colonoscopy History of cataract surgery Family History Father Throat cancer Mother Unknown family medical history Daughter No problems noted. Social History Housing: House Alcohol intake: current Alcohol intake frequency: does not drink Patient Tobacco Use Status: Never used Tobacco e-Cigarette/Vaping Use: Never Used Second Hand Smoke Exposure: No service: No Current occupational status: employed Current occupation: [employer] Current occupational exposures/hazards: No Cognitive needs: No Hearing needs: No Vision needs: Yes Questionnaire PHQ-9 Over the last 2 weeks, how often have you been bothered by any of the following problems? 1. Little interest or pleasure in doing things: several days 2. Feeling down, depressed, or hopeless: not at all 3. Trouble falling or staying asleep, or sleeping too much: not at all 4. Feeling tired or having little energy: several days 5. Poor appetite or overeating: not at all 6. Feeling bad about yourself - or that you are a failure or have let yourself or your family down: not at all 7. Trouble concentrating on things, such as reading the newspaper or watching television: not at all 8. Moving or speaking so slowly that other people could have noticed. Or the opposite - being so fidgety or restless that you have been moving around a lot more than usual: not at all 9. Thoughts that you would be better off or of hurting yourself in some way: not at all Total score: 2 Depression Screening Interpretation: Negative Depression Screening Done: Yes 89914 - PHQ-9 Billing: Yes Source: Developed by Drs. Efe Miller, Angelique Mckeon, Chet Gómez and colleagues, with an educational irina from [employer]. Thrive Questionnaire Date Thrive assessed: 01/13/24 I am a: Patient What is your living situation today?: I have a steady place to live Within the past 12 months, did the food you bought not last and you didn't have the money to get more?: Never true Within the past 12 months, did you worry whether your food would run out before you got money to buy more?: Never true Do you have trouble paying for medicines?: No Do you have trouble getting transportation to medical appointments?: No Do you have trouble paying your heating and electricity bill?: No Do you have trouble taking care of your child, family member or friend?: No Do you have trouble with day-to-day activities such as bathing, preparing meals, shopping, managing finances, etc.?: No Are you currently unemployed and looking for a job?: No Are you interested in more education?: No Please select the resources that you would like help with: None Currently or been in a relationship where the following occur: no concerns reported THRIVE Score: 0 AUDIT C Alcohol Use Questionnaire (AUDIT-C) 1. How often do you have a drink containing alcohol?: Never Total Score: 0 Score Reviewed/Action Taken: Yes DANIELLE-7 AMB Questionnaire DANIELLE-7 Date DANEILLE - 7 assessed: 01/13/24 Feeling nervous, anxious, or on edge: 0 = Not at all Not being able to stop or control worryin = Not at all Worrying too much about different things: 0 = Not at all Trouble relaxin = Not at all Being so restless that it is hard to sit still: 0 = Not at all Becoming easily annoyed or irritable: 0 = Not at all Feeling afraid as if something awful might happen: 0 = Not at all Total DANIELLE-7 score (0-4 normal; 5-9 mild; 10-14 moderate; 15-21 severe): 0 Source: Developed by Drs. Efe Miller, Angelique Mckeon, Chet Gómez and colleagues, with an educational irina from [employer]. DANIELLE-7 Assessment Billing DANIELLE-7 Assessment Tool: DANIELLE-7 Assessment 86047 Review of Systems Const Denies chills, Denies fever(s) and Denies weakness Eyes Details: Followed by Dr. Kunz Reports no additional complaints ENT Reports no additional complaints and Reports Normal hearing present Card Denies chest pain at rest, Denies chest pain with activity, Denies irregular heart rhythm, Denies lightheadedness and Denies dyspnea Resp Denies cough and Denies dyspnea GI Denies abdominal pain, Denies bloating, Denies change in bowel habits and Denies heartburn Reports no additional complaints Musc Reports no additional complaints Skin/Breast Denies rash Neuro Reports no additional complaints, Reports Normal hearing present, Denies Sensory deficit (Neuro) and Denies weakness Psych Reports no additional complaints Endo Reports no additional complaints Tae/Lymph Denies easy bleeding and Denies easy bruising Aller/Immun Reports no additional complaints Physical exam (Primary Care) Vital Signs: Last Vital Signs Pulse 73 01/13/24 12:23 BP 128/70 01/13/24 12:23 Pulse Ox 98 01/13/24 12:23 BMI result Body Mass Index 24.8 Tobacco/Smoking Status: Tobacco use Status Tobacco use date assessed 10/15/23 01/13/24 12:21 Patient Tobacco Use Status Never used Tobacco 01/13/24 12:21 e-Cigarette/Vaping Use Never Used 01/13/24 12:21 PHQ-9: PHQ-9 Score PHQ-9: Total score 2 01/13/24 12:59 Depression Screening Interpretation: Negative Thrive Assessment: Date of Thrive Assessment Date Thrive assessed 01/13/24 01/13/24 12:26 Currently or been in a relationship where the following occur: no concerns reported Const General: comfortable and no acute distress Nutritional Appearance: average body habitus Orientation/consciousness: patient oriented x3 HENMT Head: Yes normocephalic Ears: external ears normal General nose exam: Normal external nose present Face and sinus: Yes face symmetric Mouth: oropharynx normal and moist mucous membranes Eyes Conjunctivae: conjunctivae normal Sclerae: sclerae normal Pupils: Equal, round and reactive pupils present EOM: EOMs intact bilaterally Neck Neck: Yes full ROM and Yes no lymphadenopathy Thyroid: Thyroid normal Carotids: normal carotid upstroke Resp Effort & Inspection: normal respiratory effort and able to speak in complete sentences Auscultation: clear to auscultation bilaterally Cardio Other: S1-S2 present regular rate and rhythm Jugular venous distension: no JVD Rate: regular rate Rhythm: regular rhythm Heart sounds: S1 normal heart sound present and S2 normal heart sound present GI Inspection: Yes normal to inspection and No distended Palpation (GI): Soft to palpation, nontender, no guarding and no masses Auscultation: normal bowel sounds General: Yes no CVA tenderness Back/Spine/Pelvis Back: no CVA tenderness Skin General skin exam: no rashes or lesions noted Neuro General: patient oriented x3, gait normal, moves all extremities, Normal light touch and pain sensation, no focal motor deficits and CN's II-XI intact bilaterally Cranial nerves: Yes Equal, round and reactive pupils present and Yes Normal hearing present Cognition (Neuro): normal cognition Gait exam (Neuro): Normal gait present Motor exam (neuro): 5/5 motor strength present throughout Sensory Exam: No Sensory deficit (Neuro) Extrem General: Yes full ROM, Yes no joint enlargement, Yes no pedal edema, Yes no calf tenderness and Yes normal gait Psych Appearance: grossly normal Mental Status: mental status grossly normal Speech and movement: Normal speech and movement present Affect: normal affect Attitude: cooperative Thought process: Normal thought process present Thought content: Normal thought content present Results Reviewed Results Reviewed: Name: Kai Guillen Age/Sex: 68/M : 1955 Unit#: [id number] Attend Dr: Jessica Jones MD Re01/11/24 Status: [facility] SPEC : [id number] SAUD: 01/11/24 STATUS: COMP REQ : [id number] RECD: 01/11/[address]: Jessica Jones MD COMP: 01/11/24 ENTERED: 01/11/[address] [facility] [address]: ORDERED: Hgb A1c Test Result Flag Reference A1c % 7.8 H <6.0 % Hemoglobin A1C Reference Range Adults: 4.8 - 6.0 % Non diabetic: < 6.0 % Goal: < 7.0 % Additional Action Suggested: > 8.0 % Note: Hemoglobin A1c results are invalid for patients with abnormal amounts of HbF. Blood transfusions may impact the HbA1c concentration in the patient sample. Est. Avg. Gluc 177 mg/dL eAG = Estimated average glucose which is %A1C expressed as average glucose, using the formula of the D5C-Shlybxi Average Glucose study (ADAG), Diabetes Care, Vol.31,#8, 2007 Name: Kai Guillen Age/Sex: 68/M : 1955 Unit#: [id number] Attend Dr: Jessica Jones MD Re01/11/24 Status: DEP REF Location: [facility] Disch: SPEC : [id number] SAUD: 01/11/24 STATUS: COMP REQ : [id number] RECD: 01/11/24-[address]: Jessica Jones MD COMP: 01/11/24-113 ENTERED: 01/11/[address] [facility] [address]: ORDERED: AST, ALT, Lipid Panel Test Result Flag Reference AST (GOT) 16 5-37 U/L ALT (GPT) 13 0-40 U/L Triglyceride 119 <150 mg/dL Desirable Triglyceride: less than 150 mg/dL Borderline High Triglyceride 150-199 mg/dL High Triglyceride: 200-499 mg/dL Very High Triglyceride: greater than or equal to 5OO mg/dL Cholesterol 180 <200 mg/dL Desirable Cholesterol: less than 200 mg/dL Borderline High Cholesterol: 200-239 mg/dL High Cholesterol: greater than 239 mg/dL LDL Calculated 103 H <100 mg/dL Desirable LDL: less than 100 mg/dL Near Optimal/Above Optimal LDL: 110-129 mg/dL Borderline High LDL: 130-159 mg/dL High LDL: 160-189 mg/dL Very High LDL: greater than or equal to 190 mg/dL HDL 54 >40 mg/dL Desirable HDL: greater than 40 mg/dL Note: This HDL assay may give artificially low results in patients with liver disease. Assessment and Plan Assessment & Plan (1) Dyslipidemia: Code(s): E78.5 - Hyperlipidemia, unspecified Plan: Reviewed recent fasting lipid profile with patient with levels . Continue atorvastatin 40 mg daily , in addition to adherence to low-cholesterol diet and regular exercise, at least 30 minutes 3 to 4 times a week. Advised patient to make healthy food choices, eat more fruits, vegetables, whole grains, wild caught fish and low-fat dairy. Limit amount of meat and fried or fatty food products, as well as processed foods and fast foods. Follow-up scheduled with repeat fasting lipid panel in 4 months. (2) Essential hypertension: Code(s): I10 - Essential (primary) hypertension Plan: Blood pressure at goal of less than 130/80. Continue lisinopril 5 mg daily. Reinforced importance of following a low sodium diet, getting regular exercise, and lowering stress levels. (3) Diabetes mellitus with microalbuminuria, without long-term current use of insulin: Code(s): E11.29 - Type 2 diabetes mellitus with other diabetic kidney complication; R80.9 - Proteinuria, unspecified Plan: Recent lab results reviewed with patient, with sugar and hemoglobin A1c now at goal. Will continue on Farxiga 10 mg daily in a.m., glipizide dose increased to 5 mg in the morning and 7.5 mg at night with supper time, metformin a 1000 mg twice a day. continue to check fasting blood sugar at home, maintain log and bring to next appointment for review. Reinforced diabetic diet and regular exercise with patient. Counseled regarding importance of yearly diabetes retinopathy screening. Patient advised to inspect feet daily, for any signs of injury, callus or infection. Compliance with diet and regular exercise again stressed. Blood pressure goal is less than 130/80, goal LDL is less than 100 and goal hemoglobin A1c is less than 7% follow-up appointment made in-4 -months, after fasting labs done. (4) Papillary renal cell carcinoma: Code(s): C64.9 - Malignant neoplasm of unspecified kidney, except renal pelvis Plan: Status post right robotic partial nephrectomy 10/27/[address] Camarillo, he is scheduled to get a repeat CT scans of abdomen pelvis every 6 months for a year for surveillance Orders: Orders Aspartate Amino Transferase 05/02/24 C64.9 - Malignant neoplasm of unspecified kidney, except renal pelvis, E11.29 - Type 2 diabetes mellitus with other diabetic kidney complication, R80.9 - Proteinuria, unspecified, I10 - Essential (primary) hypertension, E78.5 - Hyperlipidemia, unspecified Basic Metabolic Panel Fasting 05/02/24 C64.9 - Malignant neoplasm of unspecified kidney, except renal pelvis, E11.29 - Type 2 diabetes mellitus with other diabetic kidney complication, R80.9 - Proteinuria, unspecified, I10 - Essential (primary) hypertension, E78.5 - Hyperlipidemia, unspecified Lipid Panel 05/02/24 C64.9 - Malignant neoplasm of unspecified kidney, except renal pelvis, E11.29 - Type 2 diabetes mellitus with other diabetic kidney complication, R80.9 - Proteinuria, unspecified, I10 - Essential (primary) hypertension, E78.5 - Hyperlipidemia, unspecified Hemoglobin A1c 05/02/24 C64.9 - Malignant neoplasm of unspecified kidney, except renal pelvis, E11.29 - Type 2 diabetes mellitus with other diabetic kidney complication, R80.9 - Proteinuria, unspecified, I10 - Essential (primary) hypertension, E78.5 - Hyperlipidemia, unspecified Alanine Aminotransferase 05/02/24 C64.9 - Malignant neoplasm of unspecified kidney, except renal pelvis, E11.29 - Type 2 diabetes mellitus with other diabetic kidney complication, R80.9 - Proteinuria, unspecified, I10 - Essential (primary) hypertension, E78.5 - Hyperlipidemia, unspecified Microalbumin, Random (w Creat) 05/02/24 C64.9 - Malignant neoplasm of unspecified kidney, except renal pelvis, E11.29 - Type 2 diabetes mellitus with other diabetic kidney complication, R80.9 - Proteinuria, unspecified, I10 - Essential (primary) hypertension, E78.5 - Hyperlipidemia, unspecified Medications: Changed From glipizide 5 mg PO BID 180 tabs 1RF E11.29 - Type 2 diabetes mellitus with other diabetic kidney complication, R80.9 - Proteinuria, unspecified To glipizide Take 5 mg in the morning with breakfast, and 7.5 mg at night with supper 225 tabs 1RF 3 months E11.29 - Type 2 diabetes mellitus with other diabetic kidney complication, R80.9 - Proteinuria, unspecified Coding Level of Care Code Est Pt Level 4 (17141) Complex EM visit Add On G2211 Diagnoses Dyslipidemia E78.5 Essential hypertension I10 Diabetes mellitus with microalbuminuria, without long-term current use of insulin E11.29; R80.9 Papillary renal cell carcinoma C64.9 Additional Codes DANIELLE-7 Assessment Billing - DANIELLE-7 Assessment Tool: DANIELLE-7 Assessment [id number] ([id number])
[2024-01-13 12:23] VITALS: BP 128/70; PULSE 73; O2SAT 98; BMI 24.8
== END 2024-01-13 14:06 | disposition home or self-care (01) ==
PROVIDERS: PCP Internal Medicine; Visit Provider Internal Medicine
DX: E78.5 Hyperlipidemia, unspecified (principal); I10 Essential (primary) hypertension; E11.29 Type 2 diabetes mellitus with other diabetic kidney complication; C64.9 Malignant neoplasm of unspecified kidney, except renal pelvis; R80.9 Proteinuria, unspecified
CPT/HCPCS: 99214

== ENCOUNTER 2024-03-17 11:05 | Outpatient (AMB) | payer OTHER, MEDICARE, SELFPAY ==
--- NOTE | 2024-03-17 11:07 | MHC.OFFWIV ---
Intake Vital Signs 03/17/24 11:09 Height 5 ft 9 in Weight 168 lb BMI 24.8 BP 148/68 H Blood Pressure Location Rt brachial Position Sitting Pulse 68 Pulse Source Pulse Oximeter Temp 98.9 F Temp Source Oral Pulse Oximetry (%) 99 Oxygen Delivery Method Room Air Intake Visit Reasons: EP RT knee pain Intake Note: pt here c/o RT knee pain. Started 2 weeks ago Patient Tobacco Use Status: Never used Tobacco Allergies No Known Allergies Allergy (Verified 03/17/24 11:08) Do you need a note to return to daycare/school/sports/work: No HPI HPI Comments History of Present Illness Details 68 y/o male patient who presents to walk in clinic with c/o right knee pain x 2-3 weeks. This is a chronic issue, comes and goes. Walking, bending and standing makes the pain worse. Denies numbness or tingling. Denies surgeries, injury or trauma to the knee. [facility] Medical History Papillary renal cell carcinoma Anemia Vitamin D deficiency Erectile disorder due to medical condition in male Reactive airway disease Diabetes mellitus with microalbuminuria, without long-term current use of insulin Essential hypertension Benign prostatic hyperplasia Borderline open-angle glaucoma Dyslipidemia Surgical History Hx of colonoscopy History of cataract surgery Family History Father Throat cancer Mother Unknown family medical history Daughter No problems noted. Social History Housing: House Alcohol intake: current Alcohol intake frequency: does not drink Patient Tobacco Use Status: Never used Tobacco e-Cigarette/Vaping Use: Never Used Second Hand Smoke Exposure: No service: No Current occupational status: employed Current occupation: [employer] Current occupational exposures/hazards: No Cognitive needs: No Hearing needs: No Vision needs: Yes Review of Systems Const All systems reviewed & are unremarkable except as noted in HPI and below Physical Exam Vital Signs: Last Vital Signs Temp 98.9 F 03/17/24 11:09 Pulse 68 03/17/24 11:09 BP 148/68 H 03/17/24 11:09 Pulse Ox 99 03/17/24 11:09 Oxygen Delivery Method Room Air 03/17/24 11:09 BMI result Body Mass Index 24.8 Const General: comfortable and no acute distress Nutritional Appearance: thin Orientation/consciousness: patient oriented x3 Neuro General: patient oriented x3, gait normal and moves all extremities Extrem Right lower extremity: knee Details: normal to inspection and normal ROM; no tenderness, no swelling and no crepitus Left lower extremity: knee Details: normal to inspection and normal ROM; no tenderness and no swelling Psych Speech and movement: Normal speech and movement present Assessment & Plan Assessment & Plan (1) Osteoarthritis of right knee: Code(s): M17.11 - Unilateral primary osteoarthritis, right knee Qualifiers: Osteoarthritis type: primary Qualified Code(s): M17.11 - Unilateral primary osteoarthritis, right knee Plan: Acetaminophen Alt with Ibuprofen for pain relief Muscle relaxants Ice/Hot Ordered PT Orders: Orders PT Evaluation and Treatment Today M17.11 - Unilateral primary osteoarthritis, right knee Medications: New meloxicam 15 mg PO DAILY 60 tabs 0RF M17.11 - Unilateral primary osteoarthritis, right knee metaxalone 800 mg PO TID 14 tabs 0RF M17.11 - Unilateral primary osteoarthritis, right knee acetaminophen 1,000 mg (2 x 500 mg) PO Q6H PRN 30 caps 0RF pain M17.11 - Unilateral primary osteoarthritis, right knee Coding Level of Care Code Est Pt Level 3 (03753) Diagnoses Primary osteoarthritis of right knee M17.11 Osteoarthritis type: primary Time Spent (min) 15
[2024-03-17 11:09] VITALS: BP 148/68; PULSE 68; TEMP 37.2; O2SAT 99; BMI 24.8
== END 2024-03-17 11:52 | disposition home or self-care (01) ==
PROVIDERS: PCP Internal Medicine; Visit Provider Nurse Practitioner Family
DX: M17.11 Unilateral primary osteoarthritis, right knee (principal)
CPT/HCPCS: 99213

== ENCOUNTER 2024-05-18 09:51 | Outpatient (REF) | payer OTHER, MEDICARE, SELFPAY ==
[2024-05-18 14:26] LABS: Estimated Average Glucose 194 mg/dL; Hemoglobin A1c % 8.4 % (<6.0)
[2024-05-18 14:41] LABS: Alanine Aminotransferase 12 U/L (0-40); Anion Gap 9 (12-20); Aspartate Amino Transferase 17 U/L (5-37); Blood Urea Nitrogen 15 mg/dL (9-16); Calcium 9.7 mg/dL (8.4-10.2); Carbon Dioxide 27 mmol/L (22-29); Chloride 108 mmol/L (96-108); Cholesterol 161 mg/dL (<200); Estimated Glomerular Filt Rate > 60; Glucose Fasting 202 mg/dL (60-99); HDL Cholesterol 53 mg/dL (>40); LDL Cholesterol Calculated 89 mg/dL (<100); Potassium 4.4 mmol/L (3.3-5.1); Sodium 140 mmol/L (135-145); Triglycerides 95 mg/dL (<150)
[2024-05-18 15:03] LABS: Creatinine Urine 80.02 mg/dL; Microalbum/Creatinine Ratio Ur 23.7 ug/mg cr (<30)
== END 2024-05-18 09:52 | disposition home or self-care (01) ==
LOC: HO.HMGCLDS 09:51
PROVIDERS: PCP Internal Medicine; Visit Provider Internal Medicine
DX: C64.9 Malignant neoplasm of unspecified kidney, except renal pelvis (principal); E11.29 Type 2 diabetes mellitus with other diabetic kidney complication; R80.9 Proteinuria, unspecified; I10 Essential (primary) hypertension; E78.5 Hyperlipidemia, unspecified
CPT/HCPCS: 36415; 80048; 80061; 82043; 82570; 83036; 84450; 84460

== ENCOUNTER 2024-06-06 10:20 | Outpatient (AMB) | payer OTHER, MEDICARE, SELFPAY ==
--- NOTE | 2024-06-06 10:39 | MHC.PC.OV ---
Vital Signs 06/06/24 10:40 Height 5 ft 9 in Weight 172 lb BMI 25.4 BP 136/68 Blood Pressure Location Lt brachial Position Sitting Pulse 69 Pulse Source Pulse Oximeter Pulse Oximetry (%) 97 Oxygen Delivery Method Room Air Intake Visit Reasons: 3 month follow up Intake Note: Pt is here today for his 3mo. f/u labs and also request a referral for neurologist for forgetness and patient has family hx of dementia Allergies No Known Allergies Allergy (Verified 06/06/24 10:55) Medication List - Last Reconciled 06/06/24 by Jessica Jones MD acetaminophen (Tylenol) 650 mg PO Q6H PRN albuterol sulfate 90 mcg/actuation 2 puffs inhalation Q6H PRN atorvastatin 40 mg PO DAILY blood sugar diagnostic (i2we Verio test strips) Check blood sugar q.a.m. before breakfast every morning; 90 days blood-glucose meter ([employer] Verio Meter) As directed cholecalciferol (vitamin D3) 1,250 mcg PO QWEEK 3 months finasteride 5 mg PO DAILY glipizide Take 5 mg in the morning with breakfast, and 7.5 mg at night with supper 3 months lancets ([employer] Delica Plus Lancet) Test blood sugar once daily lisinopril 5 mg PO DAILY meloxicam 15 mg PO DAILY metaxalone 800 mg PO TID metformin 1,000 mg PO Q12H sildenafil 100 mg PO DAILY PRN 30 days terazosin 10 mg (2 x 5 mg) PO BEDTIME 90 days timolol maleate 0.5% 1 drp ophthalmic (eye) BID Tobacco use date assessed: 06/06/24 Fall risk assessment: No Falls in past year Last assessed Fall Risk: 06/06/24 Dental Screening Dental Screen Date: 06/06/24 Did you have a dental visit in the last 12 months?: Yes Did you have a dental problem in the last 6 months where you did not have access to dental care?: No Was dental information given to patient?: Patient has dentist HPI 3 month follow up HPI Details 69 year old male with diabetes mellitus, hyperlipidemia, and hypertension, here today for follow-up. He has been taking his medicines as directed, but no adherence to recommended diet, and no regular exercise. Latest fasting labs showed elevated hemoglobin A1c as compared to last check, but fasting lipids are within normal limits. Sees [facility] for his routine diabetes retinopathy screening and eye exam, overdue He also has been complaining of getting very forgetful, would like a referral to see a neurologist to be screened for possible beginning dementia, has positive family history of Alzheimer's. Stopped taking Farxiga a month ago as it was getting too expensive. 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 Social History Housing: House Alcohol intake: current Alcohol intake frequency: does not drink Patient Tobacco Use Status: Never used Tobacco e-Cigarette/Vaping Use: Never Used Second Hand Smoke Exposure: No service: No Current occupational status: employed Current occupation: [employer] Current occupational exposures/hazards: No Cognitive needs: No Hearing needs: No Vision needs: Yes Questionnaire Thrive Questionnaire Date Thrive assessed: 01/13/24 DANIELLE-7 AMB Questionnaire DANIELLE-7 Date DANIELLE - 7 assessed: 01/13/24 Source: Developed by Drs. Efe Miller, Angelique Mckeon, Chet Gómez and colleagues, with an educational irina from [email or web address]. Review of Systems Const All systems reviewed & are unremarkable except as noted in HPI and below ENT Reports Normal hearing present Neuro Reports Normal hearing present and Denies Sensory deficit (Neuro) Physical exam (Primary Care) Vital Signs: Last Vital Signs Pulse 69 06/06/24 10:40 BP 136/68 06/06/24 10:40 Pulse Ox 97 06/06/24 10:40 Oxygen Delivery Method Room Air 06/06/24 10:40 BMI result Body Mass Index 25.4 Tobacco/Smoking Status: Tobacco use Status Tobacco use date assessed 06/06/24 06/06/24 10:41 Patient Tobacco Use Status Never used Tobacco 06/06/24 10:41 e-Cigarette/Vaping Use Never Used 06/06/24 10:41 Thrive Assessment: Date of Thrive Assessment Date Thrive assessed 01/13/24 06/06/24 10:41 Const General: comfortable and no acute distress Nutritional Appearance: average body habitus Orientation/consciousness: patient oriented x3 HENMT Head: Yes normocephalic Ears: external ears normal General nose exam: Normal external nose present Face and sinus: Yes face symmetric Mouth: oropharynx normal and moist mucous membranes Eyes Conjunctivae: conjunctivae normal Pupils: Equal, round and reactive pupils present EOM: EOMs intact bilaterally Neck Neck: Yes full ROM and Yes no lymphadenopathy Thyroid: Thyroid normal Carotids: normal carotid upstroke Resp Effort & Inspection: normal respiratory effort and able to speak in complete sentences Auscultation: clear to auscultation bilaterally Cardio Other: S1-S2 present regular rate and rhythm Jugular venous distension: no JVD Rate: regular rate Rhythm: regular rhythm Heart sounds: S1 normal heart sound present and S2 normal heart sound present GI Inspection: Yes normal to inspection and No distended Palpation (GI): Soft to palpation, nontender, no guarding and no masses Auscultation: normal bowel sounds General: Yes no CVA tenderness Back/Spine/Pelvis Back: no CVA tenderness Skin General skin exam: no rashes or lesions noted Neuro General: patient oriented x3, gait normal, moves all extremities, Normal light touch and pain sensation, no focal motor deficits and CN's II-XI intact bilaterally Cranial nerves: Yes Equal, round and reactive pupils present and Yes Normal hearing present Cognition (Neuro): normal cognition Gait exam (Neuro): Normal gait present Motor exam (neuro): 5/5 motor strength present throughout Sensory Exam: No Sensory deficit (Neuro) Extrem General: Yes full ROM, Yes no joint enlargement, Yes no pedal edema, Yes no calf tenderness and Yes normal gait Psych Appearance: grossly normal Mental Status: mental status grossly normal Speech and movement: Normal speech and movement present Affect: normal affect Attitude: cooperative Thought process: Normal thought process present Thought content: Normal thought content present Results Reviewed Results Reviewed: Laboratory Tests 05/18/24 10:02 Estimat Average Glucose 194 Hemoglobin A1c % 8.4 H Urine Creatinine 80.02 Urine Microalbumin 19.0 Microalb/Creat Ratio 23.7 Name: Kai Guillen Age/Sex: 69/M : 1955 Unit#: [id number] Attend Dr: Jessica Jones MD Re05/18/24 Status: DEP REF Location: [facility] Disch: SPEC : [id number] SAUD: 05/18/24 STATUS: COMP REQ : [id number] RECD: 05/18/[address]: Jessica Jones MD COMP: 05/18/24 ENTERED: 05/18/[address]: ORDERED: Met Prof Fast, AST, ALT, Lipid Panel Test Result Flag Reference Sodium 140 135-145 mmol/L Potassium 4.4 3.3-5.1 mmol/L CL 108 96-108 mmol/L CO2 27 22-29 mmol/L Gap 9 L 12-20 BUN 15 9-16 mg/dL Creat 1.04 0.5-1.4 mg/dL EGFR > 60 NOTE: For -[place] individuals, multiply the result by 1.210. Chronic Kidney Disease: Estimated GFR < 60 mL/min/1.73m2 Severe Kidney Disease: Estimated GFR < 15 mL/min/1.73m2 FBS 202 H 60-99 mg/dL A fasting glucose of 126 mg/dl or greater on more than one occasion is considered diagnostic of diabetes. CA 9.7 8.4-10.2 mg/dL AST (GOT) 17 5-37 U/L ALT (GPT) 12 0-40 U/L Triglyceride 95 <150 mg/dL Desirable Triglyceride: less than 150 mg/dL Borderline High Triglyceride 150-199 mg/dL High Triglyceride: 200-499 mg/dL Very High Triglyceride: greater than or equal to 5OO mg/dL Cholesterol 161 <200 mg/dL Desirable Cholesterol: less than 200 mg/dL Borderline High Cholesterol: 200-239 mg/dL High Cholesterol: greater than 239 mg/dL LDL Calculated 89 <100 mg/dL Desirable LDL: less than 100 mg/dL Near Optimal/Above Optimal LDL: 110-129 mg/dL Borderline High LDL: 130-159 mg/dL High LDL: 160-189 mg/dL Very High LDL: greater than or equal to 190 mg/dL HDL 53 >40 mg/dL Desirable HDL: greater than 40 mg/dL Note: This HDL assay may give artificially low results in patients with liver disease. Coding Level of Care Code Est Pt Level 4 (12961) Complex EM visit Add On G2211 Diagnoses Diabetes mellitus with microalbuminuria, without long-term current use of insulin E11.29; R80.9 Memory difficulties R41.3 Family history of Alzheimer disease Z82.0 Essential hypertension I10 Dyslipidemia E78.5
[2024-06-06 10:40] VITALS: BP 136/68; PULSE 69; O2SAT 97; BMI 25.4
== END 2024-06-06 11:16 | disposition home or self-care (01) ==
PROVIDERS: PCP Internal Medicine; Visit Provider Internal Medicine
DX: E11.29 Type 2 diabetes mellitus with other diabetic kidney complication (principal); R80.9 Proteinuria, unspecified; R41.3 Other amnesia; Z82.0 Family history of epilepsy and other diseases of the nervous system; I10 Essential (primary) hypertension; E78.5 Hyperlipidemia, unspecified

== ENCOUNTER → 2024-06-06 10:20 | Outpatient (BNVA) | payer OTHER, MEDICARE, SELFPAY | PROVIDERS: PCP Internal Medicine; Visit Provider Internal Medicine | DX: E11.29 Type 2 diabetes mellitus with other diabetic kidney complication (principal); R80.9 Proteinuria, unspecified; R41.3 Other amnesia; I10 Essential (primary) hypertension; E78.5 Hyperlipidemia, unspecified; Z79.84 Long term (current) use of oral hypoglycemic drugs; Z82.0 Family history of epilepsy and other diseases of the nervous system ==

== ENCOUNTER → 2024-06-15 09:51 | Outpatient (BNVA) | payer OTHER, MEDICARE, SELFPAY | PROVIDERS: PCP Internal Medicine; Visit Provider Internal Medicine ==

== ENCOUNTER 2024-08-12 08:30 | Outpatient (REF) | payer MEDICARE, SELFPAY ==
[2024-08-12 10:55] LABS: Alanine Aminotransferase 15 U/L (0-40); Anion Gap 10 (12-20); Aspartate Amino Transferase 23 U/L (5-37); Blood Urea Nitrogen 17 mg/dL (9-16); Calcium 9.3 mg/dL (8.4-10.2); Carbon Dioxide 25 mmol/L (22-29); Chloride 110 mmol/L (96-108); Cholesterol 121 mg/dL (<200); Estimated Glomerular Filt Rate > 60; Glucose Fasting 165 mg/dL (60-99); HDL Cholesterol 43 mg/dL (>40); LDL Cholesterol Calculated 67 mg/dL (<100); Potassium 4.1 mmol/L (3.3-5.1); Sodium 141 mmol/L (135-145); Triglycerides 57 mg/dL (<150)
[2024-08-12 11:35] LABS: Estimated Average Glucose 157 mg/dL; Hemoglobin A1C 175.5923 umol/L; Hemoglobin A1c % 7.1 % (<6.0); Total Hemoglobin (HGBA1C) 3277.2446 umol/L
== END 2024-08-12 08:31 | disposition home or self-care (01) ==
LOC: HO.HMGCLDS 08:30
PROVIDERS: PCP Internal Medicine; Visit Provider Internal Medicine
DX: E78.5 Hyperlipidemia, unspecified (principal); I10 Essential (primary) hypertension; E11.29 Type 2 diabetes mellitus with other diabetic kidney complication; R80.9 Proteinuria, unspecified
CPT/HCPCS: 36415; 80048; 80061; 83036; 84450; 84460

== ENCOUNTER 2024-10-21 11:25 | Outpatient (REF) | payer MEDICARE, SELFPAY ==
--- OUTSIDE RECORDS SUMMARY | 2024-10-21 12:15 | XMS_ITS | Clinical Summary ---
Author Organization [facility] Address [address] [place] [address] Care Team Providers Care Needle Maker Name Role Phone Unavailable Primary Care Provider Unavailabl e Source Comments PLEASE NOTE, if this patient is a minor, it may be UNLAWFUL to discuss sensitive information that is contained in these records (such as FAMILY PLANNING, MENTAL HEALTH or SUBSTANCE ABUSE) with the minor patient's parent or other person without the patient's specific authorization.[facility] Immunizations Name Administration Dates Next Due MODERNA COVID-19 VACCINE BIV ALENT, BLUE CAP, 6M+ 07/03/2022 Moderna COVID-19 Vaccine, re d cap blue label, 12+ Primary Series 07/23/2021,01/08/2021,12/11/2020 Social History Tobacco Use Types Packs/Day Years Used Date Smoking Tobacco: Never Assessed Social Connections Answer Date Recorded Social Connections and Isolation 0 06/26/2022 Financial Resource Strain Answer Date R ecorded Financial Resource Strain 0 2021 Stress Answer Date Recorded Stress 0 06/26/2022 Physical Activity Answer Date Recorded Physical Activity 0 06/26/2022 Food Insecurity Answer Date Recorded Food 0 06/26/2022 Transportation Needs Answer Date Record ed Transportation 0 06/26/2022 Housing Stability Answer Date Recorded Housing 0 06/26/2022 Safety and Environment Answer Date Mario Alberto rded Safety 0 06/26/2022 Utilities Answer Date Recorded Utilities 0 06/26/2022 Employment Answer Date Recorded Employment 0 06/26/2022 Sex and Gender Information Value Date Recorded Sex Assigned at Male 07/03/2022 12:18 PM PDT Legal Sex Male 11:55 AM PDT Gender Identity Male 07/03/2022 12:18 PM PDT Sexual Orientation Don't know 07/03/2022 12 :18 PM PDT Plan of Treatment Health Maintenance Due Date Last Done Comments Diabetes Screening 1955 Hepatitis C Screening 1955 Lipid Screening 1955 Tobacco Screening 1955 Annual Preventive Care Visit 1975 Hypertension Screening (#1) 1975 CT Colonography 2002 Colonoscopy 2002 Colorectal Cancer Screening 2002 FIT/gFOBT 2002 Fecal DNA 2002 Flexible Sigmoidoscopy 2002 Abdominal Aortic Aneurysm Screening 2022 Falls Prevention 2022 Imm-Pneumococcal 65+ (1 of 1 - PCV) 2022 Alcohol and Drug Screen 09/07/2023 Depression Annual Screen 09/07/2023 [id number] ( season) 2024 07/03/2022, 07/23/2021, 01/08/2021, Additional history exists Imm-Influenza (#1) 2024 06/25/2022, 1 09/14/2020, 06/06/2019, Additional history exists Imm-DTaP/Tdap/Td (2 - Td or Tdap) 05/14/2027 017 Imm-Zoster, Recombinant Completed 03/07/2019, 01/07 Insurance [facility]
[2024-10-21 13:42] LABS: Creatinine Urine 144.67 mg/dL; Microalbum/Creatinine Ratio Ur 12.4 ug/mg cr (<30)
[2024-10-21 13:45] LABS: Estimated Average Glucose 151 mg/dL; Hemoglobin A1c % 6.9 % (<6.0); Total Hemoglobin (HGBA1C) 3543.0775 umol/L
[2024-10-21 14:10] LABS: Alanine Aminotransferase 15 U/L (0-40); Anion Gap 8 (12-20); Aspartate Amino Transferase 22 U/L (5-37); Blood Urea Nitrogen 12 mg/dL (9-16); Calcium 9.4 mg/dL (8.4-10.2); Carbon Dioxide 26 mmol/L (22-29); Chloride 109 mmol/L (96-108); Cholesterol 150 mg/dL (<200); Estimated Glomerular Filt Rate > 60; Glucose Fasting 149 mg/dL (60-99); HDL Cholesterol 53 mg/dL (>40); LDL Cholesterol Calculated 86 mg/dL (<100); Potassium 4.5 mmol/L (3.3-5.1); Sodium 138 mmol/L (135-145); Triglycerides 58 mg/dL (<150)
[2024-10-21 14:12] LABS: Vitamin D 25-OH Total 58.5 ng/mL (>30)
== END 2024-10-21 11:26 | disposition home or self-care (01) ==
LOC: HO.HMGCLDS 11:25
PROVIDERS: PCP Internal Medicine; Visit Provider Internal Medicine
DX: E11.29 Type 2 diabetes mellitus with other diabetic kidney complication (principal); R80.9 Proteinuria, unspecified; I10 Essential (primary) hypertension; E78.5 Hyperlipidemia, unspecified; Z86.39 Personal history of other endocrine, nutritional and metabolic disease
CPT/HCPCS: 36415; 80048; 80061; 82043; 82306; 82570; 83036; 84450; 84460

== ENCOUNTER 2024-11-16 13:06 | Emergency (ER) | payer OTHER, SELFPAY ==
--- NOTE | ~2024-11-16 | XR_ITS ---
EXAMINATION: XR KNEE 3 VIEWS LEFT HISTORY: pain, injury COMPARISON: There are no prior studies available for comparison. FINDINGS: Five views of the left knee are submitted. Osseous mineralization is normal. There is no fracture or dislocation. The joint spaces are preserved. There is calcification of the popliteal artery. There is no joint effusion. XR/XR knee LT 3V IMPRESSION: No evidence of fracture of the left knee. Electronically signed by: Efe Leslie MD 11/16/2024 02:38 PM EDT
--- NOTE | ~2024-11-16 | XR_ITS ---
EXAMINATION: XR HIP 1 VIEW RIGHT WITH PELVIS HISTORY: pain, injury COMPARISON: Correlation is made with the prior pelvic x-ray dated 07/10/2017. FINDINGS: A single AP view of the pelvis and two views of the right hip are submitted. Osseous mineralization is normal. There is no fracture or dislocation. The joint space is maintained. The soft tissues are unremarkable. XR/XR hip RT w PEL1V IMPRESSION: Unremarkable examination of the right hip. Electronically signed by: Efe Leslie MD 11/16/2024 02:37 PM EDT
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
[2024-11-16 13:15] VITALS: BP 170/80; PULSE 90; O2SAT 96; BMI 21.9
[2024-11-16 13:22] VITALS: BP 189/84; PULSE 92; RESP 16; TEMP 36.6; O2SAT 95
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
[2024-11-16] MEDS: Acetaminophen 325 MG TABLET 650 MG PO (16:01)
[2024-11-16 16:07] VITALS: BP 189/84; PULSE 92; RESP 16; TEMP 36.6; O2SAT 95
--- OUTSIDE RECORDS SUMMARY | 2024-11-16 16:11 | XMS_ITS | Clinical Summary ---
Author Organization [facility] Address [address] [place] [address] Care Team Providers Care Paper Baler Name Role Phone Unavailable Primary Care Provider [...] Drug Screen 09/07/2023 Depression Annual Screen 09/07/2023 [id number] ( season) 2024 07/03/2022, 07/23/2021, 01/08/2021, Additional history exists Imm-Influenza (#1) 2024 06/25/2022, 1 09/14/2020, 06/06/2019, Additional history exists Imm-DTaP/Tdap/Td (2 - Td or Tdap) 05/14/2027 017 Imm-Zoster, Recombinant Completed 03/07/2019, 01/07 Insurance [facility]
== END 2024-11-16 16:07 | disposition home or self-care (01) ==
PROVIDERS: Emergency Provider Emergency Medicine Emergency Medical Services
DX: S80.812A Abrasion, left lower leg, initial encounter (principal); V43.52XA Car driver injured in collision with other type car in traffic accident, initial encounter; J02.9 Acute pharyngitis, unspecified; R51.9 Headache, unspecified; M54.2 Cervicalgia; M25.562 Pain in left knee; M25.551 Pain in right hip; E11.9 Type 2 diabetes mellitus without complications; I10 Essential (primary) hypertension; W22.11XA Striking against or struck by driver side automobile airbag, initial encounter; Y93.89 Activity, other specified; Y92.488 Other paved roadways as the place of occurrence of the external cause; Y99.9 Unspecified external cause status; E78.5 Hyperlipidemia, unspecified; Z79.84 Long term (current) use of oral hypoglycemic drugs; Z79.899 Other long term (current) drug therapy
CPT/HCPCS: 70450; 72125; 73502; 73562; 99283; 99284

== ENCOUNTER → 2024-11-16 14:00 | Outpatient (BNV) | payer MEDICARE, SELFPAY | PROVIDERS: Emergency Provider Emergency Medicine Emergency Medical Services; Visit Provider Radiology Diagnostic Radiology | DX: M54.2 Cervicalgia (principal); R07.0 Pain in throat; M25.551 Pain in right hip; M25.562 Pain in left knee; R51.9 Headache, unspecified; V49.40XA Driver injured in collision with unspecified motor vehicles in traffic accident, initial encounter | CPT/HCPCS: 70450; 72125; 73502; 73562 ==

== ENCOUNTER 2025-01-06 07:09 | Outpatient (REF) | payer OTHER, MEDICARE, SELFPAY ==
--- OUTSIDE RECORDS SUMMARY | 2025-01-06 07:13 | XMS_ITS | Clinical Summary ---
Author Organization [facility] Address [address] [place] [address] Care Team Providers Care Farm Loan Representative Name Role Phone Unavailable Primary Care Provider Unavailabl e Source Comments PLEASE NOTE, if this patient is a minor, it may be UNLAWFUL to discuss sensitive information that is contained in these records (such as FAMILY PLANNING, MENTAL HEALTH or SUBSTANCE ABUSE) with the minor patient's parent or other person without the patient's specific authorization.[facility] Immunizations Immunization Administration Dates Next Due MODERNA COVID-19 VACCINE [...] 1955 Lipid Screening 1955 Tobacco Screening 1955 Hypertension Screening (#1) 1975 CT Colonography 2002 Colonoscopy 2002 Colorectal Cancer Screening 2002 FIT/gFOBT 2002 Fecal DNA 2002 Flexible Sigmoidoscopy 2002 Imm-Pneumococcal 65+ (1 of 1 - PCV) 2007 Abdominal Aortic Aneurysm Screening 2022 Falls Prevention 2022 Yfw-IRPNA-84 ( season) 2024 07/03/2022, 07/23/2021, 01/08/2021, Additional history exists Imm-Influenza (#1) 2024 06/25/2022, 1 09/14/2020, 06/06/2019, Additional history exists Alcohol and Drug Screen 09/07/2024 Depression Annual Screen 09/07/2024 Imm-DTaP/Tdap/Td (2 - Td or Tdap) 05/14/2027 017 Imm-Zoster, Recombinant Completed 03/07/2019, 01/07 Insurance [facility]
[2025-01-06 10:27] LABS: Estimated Average Glucose 157 mg/dL; Hemoglobin A1C 184.1131 umol/L; Hemoglobin A1c % 7.1 % (<6.0); Total Hemoglobin (HGBA1C) 3406.0845 umol/L
[2025-01-06 10:48] LABS: Alanine Aminotransferase 19 U/L (0-40); Anion Gap 10 (12-20); Aspartate Amino Transferase 22 U/L (5-37); Blood Urea Nitrogen 11 mg/dL (9-16); Calcium 9.1 mg/dL (8.4-10.2); Carbon Dioxide 25 mmol/L (22-29); Chloride 109 mmol/L (96-108); Cholesterol 134 mg/dL (<200); Estimated Glomerular Filt Rate > 60; Glucose Fasting 171 mg/dL (60-99); HDL Cholesterol 52 mg/dL (>40); LDL Cholesterol Calculated 65 mg/dL (<100); Potassium 4.1 mmol/L (3.3-5.1); Sodium 140 mmol/L (135-145); Triglycerides 89 mg/dL (<150)
== END 2025-01-06 07:10 | disposition home or self-care (01) ==
LOC: HO.HMGCLDS 07:09
PROVIDERS: PCP Internal Medicine; Visit Provider Internal Medicine
DX: E11.29 Type 2 diabetes mellitus with other diabetic kidney complication (principal); R80.9 Proteinuria, unspecified; I10 Essential (primary) hypertension; E78.5 Hyperlipidemia, unspecified
CPT/HCPCS: 36415; 80048; 80061; 83036; 84450; 84460

== ENCOUNTER 2025-01-10 11:52 | Outpatient (AMB) | payer MEDICARE, SELFPAY ==
[2025-01-10 13:00] VITALS: BP 152/90; PULSE 70; RESP 17; TEMP 36.8; O2SAT 98; BMI 24.5
--- NOTE | 2025-01-10 13:00 | MHC.PC.OV ---
Vital Signs 01/10/25 13:00 Height 5 ft 9 in Weight 166 lb BMI 24.5 BP 152/90 H Blood Pressure Location Lt brachial Position Sitting Respiration 17 Pulse 70 Pulse Source Pulse Oximeter Temp 98.3 F Temp Source Oral Pulse Oximetry (%) 98 Oxygen Delivery Method Room Air Intake Visit Reasons: PE Intake Note: Pt is here today for his PE Allergies No Known Allergies Allergy (Verified 01/10/25 13:18) Medication List - Last Reconciled 01/10/25 by Jessiac Jones MD acetaminophen (Tylenol) 650 mg PO Q6H PRN albuterol sulfate 90 mcg/actuation 2 puffs inhalation Q6H PRN atorvastatin 40 mg PO DAILY blood sugar diagnostic ([employer] Verio test strips) Check blood sugar q.a.m. before breakfast every morning; 90 days blood-glucose meter ([employer] Verio Meter) As directed finasteride 5 mg PO DAILY glipizide Take 5 mg in the morning with breakfast, and 7.5 mg at night with supper 3 months lancets ([employer] Delica Plus Lancet) Test blood sugar once daily lisinopril 5 mg PO DAILY metformin 1,000 mg PO Q12H Mounjaro (tirzepatide) 2.5 mg (0.5 mL) subcut QWEEK NS terazosin 10 mg (2 x 5 mg) PO BEDTIME 90 days timolol maleate 0.5% 1 drp ophthalmic (eye) BID Tobacco use date assessed: 01/10/25 Fall risk assessment: No Falls in past year Last assessed Fall Risk: 01/10/25 Dental Screening Dental Screen Date: 01/10/25 Did you have a dental visit in the last 12 months?: No Did you have a dental problem in the last 6 months where you did not have access to dental care?: No Was dental information given to patient?: Patient has dentist HPI PE HPI Details 69-year-old male here today for physical exam. 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 - The patient has a history of essential hypertension with recent blood pressure reading of 152/90; currently on lisinopril 5 mg. - For Type 2 Diabetes Mellitus, there?s worsening glycemic control with a hemoglobin A1c of 7.1%. Medications include metformin and glipizide, with planned adjustments to increase Mounjaro to 5 mg weekly and discontinue glipizide. - Hyperlipidemia managed with atorvastatin. - Glaucoma treated with timolol eye drops. - Managing benign prostatic hyperplasia with terazosin and finasteride. - patient's voices concerns about dementia, prompted by recent memory issues and a family history of Alzheimer?s Disease. [facility] Medical History Family history of Alzheimer disease Memory difficulties Papillary renal cell carcinoma Anemia Erectile disorder due to medical condition in male Reactive airway disease Diabetes mellitus with microalbuminuria, without long-term current use of insulin Essential hypertension Benign prostatic hyperplasia Borderline open-angle glaucoma Dyslipidemia Surgical History Hx of colonoscopy History of cataract surgery Family History Father Throat cancer Mother Unknown family medical history Daughter No problems noted. Social History Housing: House Alcohol intake: current Alcohol intake frequency: does not drink Patient Tobacco Use Status: Never used Tobacco e-Cigarette/Vaping Use: Never Used Second Hand Smoke Exposure: No service: No Current occupational status: employed Current occupation: [employer] Current occupational exposures/hazards: No Cognitive needs: No Hearing needs: No Vision needs: Yes Questionnaire PHQ-9 Over the last 2 weeks, how often have you been bothered by any of the following problems? 1. Little interest or pleasure in doing things: not at all 2. Feeling down, depressed, or hopeless: not at all 3. Trouble falling or staying asleep, or sleeping too much: not at all 4. Feeling tired or having little energy: several days 5. Poor appetite or overeating: not at all 6. Feeling bad about yourself - or that you are a failure or have let yourself or your family down: not at all 7. Trouble concentrating on things, such as reading the newspaper or watching television: not at all 8. Moving or speaking so slowly that other people could have noticed. Or the opposite - being so fidgety or restless that you have been moving around a lot more than usual: not at all 9. Thoughts that you would be better off or of hurting yourself in some way: not at all Total score: 1 Depression Screening Interpretation: Negative Depression Screening Done: Yes 45258 - PHQ-9 Billing: Yes Source: Developed by Drs. Efe Miller, Angelique Mckeon, Chet Gómez and colleagues, with an educational irina from [employer]. Thrive Questionnaire Date Thrive assessed: 01/10/25 I am a: Patient What is your living situation today?: I have a steady place to live Within the past 12 months, did the food you bought not last and you didn't have the money to get more?: Never true Within the past 12 months, did you worry whether your food would run out before you got money to buy more?: Never true Do you have trouble paying for medicines?: No Do you have trouble getting transportation to medical appointments?: No Do you have trouble paying your heating and electricity bill?: No Do you have trouble taking care of your child, family member or friend?: No Do you have trouble with day-to-day activities such as bathing, preparing meals, shopping, managing finances, etc.?: No Are you currently unemployed and looking for a job?: No Are you interested in more education?: No Please select the resources that you would like help with: None THRIVE Score: 0 AUDIT C Alcohol Use Questionnaire (AUDIT-C) 1. How often do you have a drink containing alcohol?: Never Total Score: 0 Score Reviewed/Action Taken: Yes DANIELLE-7 AMB Questionnaire DANIELLE-7 Date DANIELLE - 7 assessed: 01/13/24 Source: Developed by Drs. Efe Miller, Angelique Mckeon, Chet Gómez and colleagues, with an educational irina from [employer]. Review of Systems Const Denies chills, Denies fever(s) and Denies weakness Eyes Details: Sees Dr. Kunz has appointment 02/15/2025 Reports no additional complaints ENT Reports no additional complaints and Reports Normal hearing present Card Denies chest pain at rest, Denies chest pain with activity, Denies irregular heart rhythm, Denies lightheadedness and Denies dyspnea Resp Denies cough and Denies dyspnea GI Details: Up-to-date with his screening colonoscopy , negative, done in 2017, due again in [address] Lancaster Denies abdominal pain, Denies bloating, Denies change in bowel habits and Denies heartburn Details: Followed by [facility] Urology Reports no additional complaints Musc Reports no additional complaints Skin/Breast Denies rash Neuro Reports no additional complaints, Reports Normal hearing present, Denies Sensory deficit (Neuro) and Denies weakness Psych Reports no additional complaints Endo Reports no additional complaints Tae/Lymph Denies easy bleeding and Denies easy bruising Aller/Immun Reports no additional complaints Physical exam (Primary Care) Vital Signs: Last Vital Signs Temp 98.3 F 01/10/25 13:00 Pulse 70 01/10/25 13:00 Resp 17 01/10/25 13:00 BP 152/90 H 01/10/25 13:00 Pulse Ox 98 01/10/25 13:00 Oxygen Delivery Method Room Air 01/10/25 13:00 BMI result Body Mass Index 24.5 Tobacco/Smoking Status: Tobacco use Status Tobacco use date assessed 01/10/25 01/10/25 13:10 Patient Tobacco Use Status Never used Tobacco 01/10/25 13:10 e-Cigarette/Vaping Use Never Used 01/10/25 13:10 Depression Screening Interpretation: Negative Thrive Assessment: Date of Thrive Assessment Date Thrive assessed 01/13/24 01/10/25 13:10 Const General: comfortable and no acute distress Nutritional Appearance: average body habitus Orientation/consciousness: patient oriented x3 HENMT Head: Yes normocephalic Ears: external ears normal General nose exam: Normal external nose present Face and sinus: Yes face symmetric Mouth: oropharynx normal and moist mucous membranes Eyes Conjunctivae: conjunctivae normal Pupils: Equal, round and reactive pupils present EOM: EOMs intact bilaterally Neck Neck: Yes full ROM and Yes no lymphadenopathy Thyroid: Thyroid normal Resp Effort & Inspection: normal respiratory effort and able to speak in complete sentences Auscultation: clear to auscultation bilaterally Cardio Other: S1-S2 present regular rate and rhythm Jugular venous distension: no JVD Rate: regular rate Rhythm: regular rhythm Heart sounds: S1 normal heart sound present and S2 normal heart sound present GI Inspection: Yes normal to inspection and No distended Palpation (GI): Soft to palpation, nontender, no guarding and no masses Auscultation: normal bowel sounds General: Yes no CVA tenderness Back/Spine/Pelvis Back: no CVA tenderness Skin General skin exam: no rashes or lesions noted Neuro General: patient oriented x3, gait normal, moves all extremities, Normal light touch and pain sensation, no focal motor deficits and CN's II-XI intact bilaterally Cranial nerves: Yes Equal, round and reactive pupils present and Yes Normal hearing present Cognition (Neuro): normal cognition Gait exam (Neuro): Normal gait present Motor exam (neuro): 5/5 motor strength present throughout Sensory Exam: No Sensory deficit (Neuro) Extrem General: Yes full ROM, Yes no joint enlargement, Yes no pedal edema, Yes no calf tenderness and Yes normal gait Psych Appearance: grossly normal Mental Status: mental status grossly normal Speech and movement: Normal speech and movement present Affect: normal affect Attitude: cooperative Thought process: Normal thought process present Thought content: Normal thought content present Results Reviewed Results Reviewed: Name: Kai Guillen Age/Sex: 69/M : 1955 Unit#: [id number] Attend Dr: Jessica Jones MD Re10/21/24 Status: DEP REF Location: [facility] Disch: SPEC : [id number] SAUD: 10/21/24 STATUS: COMP REQ : [id number] RECD: 10/21/24-[address]: Jessica Jones MD COMP: 10/21/24-1342 ENTERED: 10/21/24-[address] [facility] [address]: ORDERED: MICARU Test Result Flag Reference Creat, Ur 144.67 mg/dL Microalbumin Ur 18.0 mg/L Alb/Creat Ratio 12.4 <30 ug/mg cr Albumin/Creatinine Ratio Reference Ranges: Normal: < 30 ug/mg creatinine Microalbuminuria: 30 - 300 ug/mg creatinine Clinical Albuminuria: > 300 ug/mg creatinine Name: Kai Guillen Age/Sex: 69/M : 1955 Unit#: [id number] Attend Dr: Jessica Jones MD Re01/06/25 Status: [facility]P [facility] Disch: SPEC : [id number] SAUD: 01/06/25 STATUS: COMP REQ : [id number] RECD: 01/06/[address]: Jessica Jones MD COMP: 01/06/25 ENTERED: 01/06/[address] [facility] [address]: ORDERED: Met Prof Fast, AST, ALT, Lipid Panel Test Result Flag Reference Sodium 140 135-145 mmol/L Potassium 4.1 3.3-5.1 mmol/L CL 109 H 96-108 mmol/L CO2 25 22-29 mmol/L Gap 10 L 12-20 BUN 11 9-16 mg/dL Creat 0.91 0.5-1.4 mg/dL eGFR > 60 Chronic Kidney Disease: Estimated GFR < 60 mL/min/1.73m2 Severe Kidney Disease: Estimated GFR < 15 mL/min/1.73m2 FBS 171 H 60-99 mg/dL A fasting glucose of 126 mg/dl or greater on more than one occasion is considered diagnostic of diabetes. CA 9.1 8.4-10.2 mg/dL AST (GOT) 22 5-37 U/L ALT (GPT) 19 0-40 U/L Triglyceride 89 <150 mg/dL Desirable Triglyceride: less than 150 mg/dL Borderline High Triglyceride 150-199 mg/dL High Triglyceride: 200-499 mg/dL Very High Triglyceride: greater than or equal to 5OO mg/dL Cholesterol 134 <200 mg/dL Desirable Cholesterol: less than 200 mg/dL Borderline High Cholesterol: 200-239 mg/dL High Cholesterol: greater than 239 mg/dL LDL Calculated 65 <100 mg/dL Desirable LDL: less than 100 mg/dL Near Optimal/Above Optimal LDL: 110-129 mg/dL Borderline High LDL: 130-159 mg/dL High LDL: 160-189 mg/dL Very High LDL: greater than or equal to 190 mg/dL HDL 52 >40 mg/dL Desirable HDL: greater than 40 mg/dL Note: This HDL assay may give artificially low results in patients with liver disease. Laboratory Tests 01/06/25 07:15 Estimat Average Glucose 157 Hemoglobin A1c % 7.1 H Coding Level of Care Code Est Pt Prev Care >65y(63659) Diagnoses Annual visit for general adult medical examination with abnormal findings Z00.01 Memory difficulties R41.3 Family history of Alzheimer disease Z82.0 Diabetes mellitus with microalbuminuria, without long-term current use of insulin E11.29; R80.9 Essential hypertension I10 Benign prostatic hyperplasia N40.0 Borderline open-angle glaucoma Dyslipidemia E78.5 Additional Codes PHQ-9 - 36046 - PHQ-9 Billing: Yes ([id number]) Assessment & Plan Assessment & Plan (1) Annual visit for general adult medical examination with abnormal findings: Code(s): Z00.01 - Encounter for general adult medical examination with abnormal findings (2) Memory difficulties: Code(s): R41.3 - Other amnesia Category: Medical (3) Family history of Alzheimer disease: Code(s): Z82.0 - Family history of epilepsy and other diseases of the nervous system Category: Medical (4) Diabetes mellitus with microalbuminuria, without long-term current use of insulin: Code(s): E11.29 - Type 2 diabetes mellitus with other diabetic kidney complication; R80.9 - Proteinuria, unspecified Category: Medical (5) Essential hypertension: Code(s): I10 - Essential (primary) hypertension Category: Medical (6) Benign prostatic hyperplasia: Comment: Followed by Dr. Hoffman Code(s): N40.0 - Benign prostatic hyperplasia without lower urinary tract symptoms Category: Medical (7) Borderline open-angle glaucoma: Comment: Followed by Dr. Kunz Category: Medical (8) Dyslipidemia: Code(s): E78.5 - Hyperlipidemia, unspecified Category: Medical Plan For the management of essential hypertension, the patient's lisinopril dosage will be increased to 10 mg due to current inadequate blood pressure control. Regarding Type 2 Diabetes Mellitus, I suggested stopping glipizide and increasing Mounjaro to 5 mg weekly to optimize glycemic management. Continuation of atorvastatin for hyperlipidemia is advised. The patient's glaucoma should continue to be managed with timolol eye drops. Given concerns about memory, a neurology referral is warranted to evaluate for dementia. Follow-up in two weeks to assess blood pressure is recommended and re-evaluation to occur in three months. - Colonoscopy up-to-date, next due in 2027. - Vaccinations: Flu shot received in June 2023. COVID-19 vaccine booster and pneumonia, shingles, and tetanus vaccinations are up-to-date. - Routine eye examination scheduled for February [address] Leon. Patient was informed and verbally consented to the use of an ambient scribe for clinic note documentation during this visit. Orders: Orders Alanine Aminotransferase 04/07/25 D64.9 - Anemia, unspecified, E11.29 - Type 2 diabetes mellitus with other diabetic kidney complication, R80.9 - Proteinuria, unspecified, E78.5 - Hyperlipidemia, unspecified Aspartate Amino Transferase 04/07/25 D64.9 - Anemia, unspecified, E11.29 - Type 2 diabetes mellitus with other diabetic kidney complication, R80.9 - Proteinuria, unspecified, E78.5 - Hyperlipidemia, unspecified Hemoglobin A1c 04/07/25 D64.9 - Anemia, unspecified, E11.29 - Type 2 diabetes mellitus with other diabetic kidney complication, R80.9 - Proteinuria, unspecified, E78.5 - Hyperlipidemia, unspecified Basic Metabolic Panel Fasting 04/07/25 D64.9 - Anemia, unspecified, E11.29 - Type 2 diabetes mellitus with other diabetic kidney complication, R80.9 - Proteinuria, unspecified, E78.5 - Hyperlipidemia, unspecified Complete Blood Count Auto Diff 04/07/25 D64.9 - Anemia, unspecified, E11.29 - Type 2 diabetes mellitus with other diabetic kidney complication, R80.9 - Proteinuria, unspecified, E78.5 - Hyperlipidemia, unspecified Lipid Panel 04/07/25 D64.9 - Anemia, unspecified, E11.29 - Type 2 diabetes mellitus with other diabetic kidney complication, R80.9 - Proteinuria, unspecified, E78.5 - Hyperlipidemia, unspecified Referrals Neurology Referral R41.3 - Other amnesia, Z82.0 - Family history of epilepsy and other diseases of the nervous system Medications: Changed From Mounjaro 2.5 mg (0.5 mL) subcut QWEEK 2 mL 5RF NS E11.29 - Type 2 diabetes mellitus with other diabetic kidney complication, R80.9 - Proteinuria, unspecified To tirzepatide 5 mg (0.5 mL) subcut QWEEK 6.5 mL 3RF 3 months E11.29 - Type 2 diabetes mellitus with other diabetic kidney complication, R80.9 - Proteinuria, unspecified From lisinopril 5 mg PO DAILY 90 tabs 0RF To lisinopril 10 mg PO DAILY 90 tabs 0RF 3 months From blood sugar diagnostic Check blood sugar q.a.m. before breakfast every morning; 90 days 100 strips 5RF for diabetes mellitus E11.29 - Type 2 diabetes mellitus with other diabetic kidney complication, R80.9 - Proteinuria, unspecified To blood sugar diagnostic ([employer] Verio test strips) Check blood sugar q.a.m. before breakfast every morning; 100 strips 5RF for diabetes mellitus 90 days E11.29 - Type 2 diabetes mellitus with other diabetic kidney complication, R80.9 - Proteinuria, unspecified Refilled atorvastatin 40 mg PO DAILY 90 tabs 3RF Discontinued glipizide Discontinued Reason: Doctor's Order Take 5 mg in the morning with breakfast, and 7.5 mg at night with supper 3 months 225 tabs 1RF E11.29 - Type 2 diabetes mellitus with other diabetic kidney complication, R80.9 - Proteinuria, unspecified
--- OUTSIDE RECORDS SUMMARY | 2025-01-10 13:27 | XMS_ITS | Clinical Summary ---
Author Organization [facility] Address [address] [place] [address] Care Team Providers Care Bindery Chief Name Role Phone Unavailable Primary Care Provider [...] Aortic Aneurysm Screening 2022 Falls Prevention 2022 Aza-OYRVO-21 ( season) 2024 07/03/2022, 07/23/2021, 01/08/2021, Additional history exists Imm-Influenza (#1) 2024 06/25/2022, 1 09/14/2020, 06/06/2019, Additional history exists Alcohol and Drug Screen 09/07/2024 Depression Annual Screen 09/07/2024 Imm-DTaP/Tdap/Td (2 - Td or Tdap) 05/14/2027 017 Imm-Zoster, Recombinant Completed 03/07/2019, 01/07 Insurance [facility]
== END 2025-01-10 13:45 | disposition home or self-care (01) ==
PROVIDERS: Visit Provider Internal Medicine
DX: Z00.01 Encounter for general adult medical examination with abnormal findings (principal); R41.3 Other amnesia; Z82.0 Family history of epilepsy and other diseases of the nervous system; E11.29 Type 2 diabetes mellitus with other diabetic kidney complication; R80.9 Proteinuria, unspecified; I10 Essential (primary) hypertension; N40.0 Benign prostatic hyperplasia without lower urinary tract symptoms; E78.5 Hyperlipidemia, unspecified

== ENCOUNTER → 2025-01-10 11:52 | Outpatient (BNVA) | payer OTHER, SELFPAY | PROVIDERS: Visit Provider Internal Medicine | DX: Z00.01 Encounter for general adult medical examination with abnormal findings (principal); R41.3 Other amnesia; E11.29 Type 2 diabetes mellitus with other diabetic kidney complication; R80.9 Proteinuria, unspecified; I10 Essential (primary) hypertension; N40.0 Benign prostatic hyperplasia without lower urinary tract symptoms; E78.5 Hyperlipidemia, unspecified; H40.9 Unspecified glaucoma; Z85.528 Personal history of other malignant neoplasm of kidney; Z90.5 Acquired absence of kidney; Z82.0 Family history of epilepsy and other diseases of the nervous system | CPT/HCPCS: 96127; 99397 ==

== ENCOUNTER → 2025-01-26 13:38 | Outpatient (BNVA) | payer MEDICARE, OTHER, SELFPAY | PROVIDERS: PCP Internal Medicine ==

== ENCOUNTER 2025-03-02 11:34 | Emergency (ER) | payer OTHER, MEDICARE, SELFPAY ==
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
[2025-03-02 11:45] VITALS: BP 170/74; PULSE 75; RESP 18; TEMP 36.6; O2SAT 98; BMI 23.8
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
[2025-03-02 13:47] VITALS: BP 153/80; PULSE 66; RESP 16; TEMP 36.7; O2SAT 98
[2025-03-02] MEDS: Acetaminophen 325 MG TABLET 975 MG PO (14:01)
--- OUTSIDE RECORDS SUMMARY | 2025-03-02 14:48 | XMS_ITS | Patient Health Record ---
Author Organization [facility] Address [address] [place] [id number] Care Team Providers Care Market Research Assistant Name Role Phone Karen JI, Jessica Primary Care Provider Jason Kemp Jr Unavailable Reason For Referral No Information Medications Medication SIG (Take, Route, Frequency, Duration) Notes Start Date End Date Status Chris Aspirin Active Colyte with Flavor Packs 240 GM As directed Orally Over the specified time. for 1 day(s) Active Lisinopril Active Januvia Active metFORMIN HCl Active Atorvastatin Calcium Active Social History Tobacco Use: Social History Observation Description Date Details (start date - stop date) Never Smoker NA - NA Tobacco Use/Smoking Question Answer Notes Patient is a nonsmoker Alcohol Screen Question Answer Notes Did you have a drink containing alcohol in the p ast year? 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
[2025-03-02 15:14] VITALS: BP 153/80; PULSE 66; RESP 16; TEMP 36.7; O2SAT 98
== END 2025-03-02 15:14 | disposition home or self-care (01) ==
PROVIDERS: Emergency Provider Emergency Medicine; PCP Internal Medicine
DX: S13.4XXA Sprain of ligaments of cervical spine, initial encounter (principal); R93.7 Abnormal findings on diagnostic imaging of other parts of musculoskeletal system; M54.50 Low back pain, unspecified; M54.2 Cervicalgia; R51.9 Headache, unspecified; V43.52XA Car driver injured in collision with other type car in traffic accident, initial encounter; Y93.9 Activity, unspecified; Y92.410 Unspecified street and highway as the place of occurrence of the external cause; Y99.8 Other external cause status; Z79.899 Other long term (current) drug therapy
CPT/HCPCS: 70450; 72100; 72125; 99284

== ENCOUNTER → 2025-03-02 11:53 | Outpatient (BNV) | payer OTHER, MEDICARE, SELFPAY | PROVIDERS: Emergency Provider Emergency Medicine; PCP Internal Medicine; Visit Provider Radiology Diagnostic Radiology | DX: M25.78 Osteophyte, vertebrae (principal); G44.309 Post-traumatic headache, unspecified, not intractable; G89.11 Acute pain due to trauma | CPT/HCPCS: 70450; 72100; 72125 ==

== ENCOUNTER 2025-04-25 07:43 | Outpatient (AMB) | payer MEDICARE, SELFPAY ==
--- OUTSIDE RECORDS SUMMARY | 2025-04-25 07:46 | XMS_ITS | Clinical Summary ---
Author Organization [facility] Address [address] [place] [address] Care Team Providers Care Rental Agent Name Role Phone Unavailable Primary Care Provider [...] 0 06/26/2022 Safety and Environment Answer Date Amrio Alberto rded Safety 0 06/26/2022 Utilities Answer [...] Fecal DNA 2002 Flexible Sigmoidoscopy 2002 Imm-Pneumococcal 50+ (1 of 1 - PCV) 2007 Abdominal Aortic Aneurysm Screening 2022 Falls Prevention 2022 [id number] ( season) 2024 07/03/2022, 07/23/2021, 01/08/2021, Additional history exists Alcohol and Drug Screen 09/07/2024 Depression Annual Screen 09/07/2024 Imm-Influenza (#1) 2025 06/25/2022, 1 09/14/2020, 06/06/2019, Additional history exists Imm-DTaP/Tdap/Td (2 - Td or Tdap) 05/14/2027 017 Imm-Zoster, Recombinant Completed 03/07/2019, 01/07 Insurance [facility]
--- OUTSIDE RECORDS SUMMARY | 2025-04-25 07:46 | XMS_ITS | Patient Health Record ---
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
--- NOTE | 2025-04-25 08:13 | MHC.PC.OV ---
Vital Signs 04/25/25 08:22 Height 5 ft 9 in Weight 161 lb BMI 23.8 BP 130/70 Blood Pressure Location Rt brachial Position Sitting Respiration 16 Temp 98.6 F Temp Source Oral Intake Visit Reasons: 3 months f/up Intake Note: Pt is here today for his 3mo. f/u Allergies No Known Allergies Allergy (Verified 04/25/25 08:24) Medication List - Last Reconciled 04/25/25 by Jessica Jones MD acetaminophen (Tylenol Extra Strength) 500 mg PO Q6H PRN albuterol sulfate 90 mcg/actuation 2 puffs inhalation Q6H PRN atorvastatin 40 mg PO DAILY blood sugar diagnostic ([employer] Verio test strips) Check blood sugar q.a.m. before breakfast every morning; 90 days blood-glucose meter ([employer] Verio Meter) As directed finasteride 5 mg PO DAILY lancets ([employer] Delica Plus Lancet) Test blood sugar once daily lidocaine 5% 1 patch topical Q24H lisinopril 10 mg PO DAILY 3 months metformin 1,000 mg PO Q12H terazosin 10 mg (2 x 5 mg) PO BEDTIME 90 days timolol maleate 0.5% 1 drp ophthalmic (eye) BID tirzepatide 5 mg (0.5 mL) subcut QWEEK 3 months Tobacco use date assessed: 04/25/25 Fall risk assessment: No Falls in past year Last assessed Fall Risk: 04/25/25 Dental Screening Dental Screen Date: 04/25/25 Did you have a dental visit in the last 12 months?: Yes Did you have a dental problem in the last 6 months where you did not have access to dental care?: No Was dental information given to patient?: Patient has dentist HPI 3 months f/up HPI Details 70-year-old male with history of papillary renal carcinoma, diabetes mellitus, hyperlipidemia and hypertension, here today for his 3 month follow-up. Patient states that he has been taking his medications, but has not yet had his fasting labs drawn. Hemoglobin A1c drawn at the clinic came back at 6.6%, better than last check. Has been compliant with taking his medications and following recommended diet. Has been feeling well, with no complaints except for intermittent numbness tingling in both feet. Does not see podiatry. Has been tolerating Mounjaro. Sees Dr. Kunz for his diabetes retinopathy screening and treatment of his glaucoma, missed his appointment, has to reschedule. Still sees Urology regularly for follow-up on his BPH up-to-date with all his vaccines [facility] Medical History (Updated 04/25/25 @ 08:50 by Jessica Jones MD) Family history of Alzheimer disease Memory difficulties Papillary renal cell carcinoma Anemia Erectile disorder due to medical condition in male Reactive airway disease Diabetes mellitus with microalbuminuria, without long-term current use of insulin Essential hypertension Benign prostatic hyperplasia Borderline open-angle glaucoma Dyslipidemia Surgical History Hx of colonoscopy History of cataract surgery Family History Father Throat cancer Mother Unknown family medical history Daughter No problems noted. Social History Housing: House Alcohol intake: current Alcohol intake frequency: does not drink Patient Tobacco Use Status: Never used Tobacco e-Cigarette/Vaping Use: Never Used Second Hand Smoke Exposure: No service: No Current occupational status: employed Current occupation: [employer] Current occupational exposures/hazards: No Cognitive needs: No Hearing needs: No Vision needs: Yes Questionnaire PHQ-9 Over the last 2 weeks, how often have you been bothered by any of the following problems? Depression Screening Interpretation: Negative Depression Screening Done: Yes Source: Developed by Drs. Efe Miller, Chet Finn and colleagues, with an educational irina from [employer]. Thrive Questionnaire Date Thrive assessed: 01/10/25 THRIVE Score: 0 DANIELLE-7 AMB Questionnaire DANIELLE-7 Date DANIELLE - 7 assessed: 01/13/24 Source: Developed by Drs. Efe Miller, Angelique Mckeon, Chet Gómez and colleagues, with an educational irina from [employer]. Review of Systems Const Denies chills, Denies fever(s) and Denies weakness Eyes Details: Sees Dr. Kunz Reports no additional complaints ENT Reports no additional complaints and Reports Normal hearing present Card Denies chest pain at rest, Denies chest pain with activity, Denies irregular heart rhythm, Denies lightheadedness and Denies dyspnea Resp Denies cough and Denies dyspnea GI Details: Up-to-date with his screening colonoscopy , negative, done in 2017, due again [place] [address] Lancaster Denies abdominal pain, Denies bloating, Denies change in bowel habits and Denies heartburn Details: Followed by [facility] Reports no additional complaints Musc Reports no additional complaints Skin/Breast Denies rash Neuro Reports no additional complaints, Reports Normal hearing present, Denies Sensory deficit (Neuro) and Denies weakness Psych Reports no additional complaints Endo Reports no additional complaints Tae/Lymph Denies easy bleeding and Denies easy bruising Aller/Immun Reports no additional complaints Physical exam (Primary Care) Tobacco/Smoking Status: Tobacco use Status Tobacco use date assessed 04/25/25 04/25/25 08:16 Patient Tobacco Use Status Never used Tobacco 04/25/25 08:13 e-Cigarette/Vaping Use Never Used 04/25/25 08:13 Depression Screening Interpretation: Negative Thrive Assessment: Date of Thrive Assessment Date Thrive assessed 01/10/25 04/25/25 08:13 Const General: comfortable and no acute distress Nutritional Appearance: average body habitus Orientation/consciousness: patient oriented x3 HENMT Head: Yes normocephalic Ears: external ears normal General nose exam: Normal external nose present Face and sinus: Yes face symmetric Mouth: oropharynx normal and moist mucous membranes Eyes Conjunctivae: conjunctivae normal Pupils: Equal, round and reactive pupils present EOM: EOMs intact bilaterally Neck Neck: Yes full ROM and Yes no lymphadenopathy Thyroid: Thyroid normal Resp Effort & Inspection: normal respiratory effort and able to speak in complete sentences Auscultation: clear to auscultation bilaterally Cardio Jugular venous distension: no JVD Rate: regular rate Rhythm: regular rhythm Heart sounds: S1 normal heart sound present and S2 normal heart sound present GI Inspection: Yes normal to inspection and No distended Palpation (GI): Soft to palpation, nontender, no guarding and no masses Auscultation: normal bowel sounds General: Yes no CVA tenderness Back/Spine/Pelvis Back: no CVA tenderness Skin General skin exam: no rashes or lesions noted Neuro General: patient oriented x3, gait normal, moves all extremities, Normal light touch and pain sensation and no focal motor deficits Cranial nerves: Yes Equal, round and reactive pupils present and Yes Normal hearing present Cognition (Neuro): normal cognition Gait exam (Neuro): Normal gait present Motor exam (neuro): 5/5 motor strength present throughout Sensory Exam: No Sensory deficit (Neuro) Extrem General: Yes full ROM, Yes no joint enlargement, Yes no pedal edema, Yes no calf tenderness and Yes normal gait Psych Appearance: grossly normal Mental Status: mental status grossly normal Speech and movement: Normal speech and movement present Affect: normal affect Attitude: cooperative Thought process: Normal thought process present Thought content: Normal thought content present Results AMB Hemoglobin A1c AMB Hemoglobin A1c 6.6 % Last Edit by Celestina Godinez CMA on 04/25/25 08:26 Coding Level of Care Code Est Pt Level 4 (86997) Complex EM visit Add On G2211 Diagnoses Diabetes mellitus with microalbuminuria, without long-term current use of insulin E11.29; R80.9 Dyslipidemia E78.5 Essential hypertension I10 Borderline open-angle glaucoma Benign prostatic hyperplasia N40.0 Assessment & Plan Assessment & Plan (1) Diabetes mellitus with microalbuminuria, without long-term current use of insulin: Code(s): E11.29 - Type 2 diabetes mellitus with other diabetic kidney complication; R80.9 - Proteinuria, unspecified Category: Medical Plan: Continued on metformin and Mounjaro at the same dose. Advised to reschedule appointment for his diabetes retinopathy screening with Dr. Kunz. Referred to [facility] podiatry for follow-up regarding numbness and tingling in both feet and for diabetes foot exam up-to-date with all his vaccines, reminded to get his RSV vaccination, already received his flu shot (2) Dyslipidemia: Code(s): E78.5 - Hyperlipidemia, unspecified Category: Medical Plan: Reminded to get his fasting lipid labs done. Currently on atorvastatin 40 mg daily (3) Essential hypertension: Code(s): I10 - Essential (primary) hypertension Category: Medical Plan: Blood pressure at goal of less than 130/80. Continue lisinopril 10 mg daily. Reinforced importance of following a low sodium diet, getting regular exercise, and lowering stress levels. (4) Borderline open-angle glaucoma: Comment: Followed by Dr. Kunz Category: Medical Plan: Sees Dr. Kunz, advised to call than schedule appointment. Currently on timolol maleate eyedrops 0 0.5% 1 drop twice a day (5) Benign prostatic hyperplasia: Comment: Followed by Dr. Hoffman Code(s): N40.0 - Benign prostatic hyperplasia without lower urinary tract symptoms Category: Medical Plan: Followed by [facility] Urology, currently on terazosin 10 mg at bedtime and finasteride 5 mg daily Orders: Orders Hemoglobin A1c 08/07/25. - Type 2 diabetes mellitus with other diabetic kidney complication, E78.5 - Hyperlipidemia, unspecified, I10 - Essential (primary) hypertension, R80.9 - Proteinuria, unspecified Basic Metabolic Panel Fasting 08/07/25. - Type 2 diabetes mellitus with other diabetic kidney complication, E78.5 - Hyperlipidemia, unspecified, I10 - Essential (primary) hypertension, R80.9 - Proteinuria, unspecified Lipid Panel 08/07/25. - Type 2 diabetes mellitus with other diabetic kidney complication, E78.5 - Hyperlipidemia, unspecified, I10 - Essential (primary) hypertension, R80.9 - Proteinuria, unspecified AMB Hemoglobin A1c Today - Type 2 diabetes mellitus with other diabetic kidney complication, R80.9 - Proteinuria, unspecified Alanine Aminotransferase 08/07/25. - Type 2 diabetes mellitus with other diabetic kidney complication, E78.5 - Hyperlipidemia, unspecified, I10 - Essential (primary) hypertension, R80.9 - Proteinuria, unspecified Aspartate Amino Transferase 08/07/25. - Type 2 diabetes mellitus with other diabetic kidney complication, E78.5 - Hyperlipidemia, unspecified, I10 - Essential (primary) hypertension, R80.9 - Proteinuria, unspecified Referrals Podiatry Referral . - Type 2 diabetes mellitus with other diabetic kidney complication, R80.9 - Proteinuria, unspecified
[2025-04-25 08:22] VITALS: BP 130/70; RESP 16; TEMP 37; BMI 23.8
== END 2025-04-25 08:49 | disposition home or self-care (01) ==
LOC: HO.HMCC 07:44
PROVIDERS: PCP Internal Medicine; Visit Provider Internal Medicine
DX: E11.29 Type 2 diabetes mellitus with other diabetic kidney complication (principal); R80.9 Proteinuria, unspecified; E78.5 Hyperlipidemia, unspecified; I10 Essential (primary) hypertension; N40.0 Benign prostatic hyperplasia without lower urinary tract symptoms

== ENCOUNTER → 2025-04-25 07:43 | Outpatient (BNVA) | payer MEDICARE, OTHER, SELFPAY | PROVIDERS: PCP Internal Medicine; Visit Provider Internal Medicine | DX: E11.29 Type 2 diabetes mellitus with other diabetic kidney complication (principal); E78.5 Hyperlipidemia, unspecified; I10 Essential (primary) hypertension; R80.9 Proteinuria, unspecified; N40.0 Benign prostatic hyperplasia without lower urinary tract symptoms | CPT/HCPCS: 83036; 99212 ==

== ENCOUNTER 2025-04-26 08:34 | Outpatient (REF) | payer MEDICARE, SELFPAY ==
--- OUTSIDE RECORDS SUMMARY | 2025-04-26 09:15 | XMS_ITS | Patient Health Record ---
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 Name Role Phone Karen JI, Jessica Primary Care Provider Jason Kemp Jr Unavailable [phone] Reason For Referral No Information Medications Medication [...] Problem Status W/U Status Risk Notes Problem [id number] Colon cancer screening (Z12.11) Active confirmed Problem [id number] Encounter for other preprocedural examination (Z01.818) Active confirmed Problem [id number] FDC (current) use of aspirin (Z79.82) Active confirmed Plan Of Treatment Future Test Test Name Order Date COLONOSCOPY 01/20/2018 Insurance Providers Payer Name Payer Address Payer Phone Subscriber Number Group Number Insured Name Patient Relationship to Insured Coverage Start Date Coverage End Date CIG[employer] [address] [place], [place] [address] [id number] DELMA GUSMAN Self - patient is the insured Medical (General) History Medical History History ICD Code diabetes mellitus hypertension hyperlipidemia cataracts Zenker diverticulum BPH Surgical History Surgery Date(Month/Year) cataract surgery
--- OUTSIDE RECORDS SUMMARY | 2025-04-26 09:15 | XMS_ITS | Clinical Summary ---
Author Organization [facility] Address [address] [place] [address] Care Team Providers Care Sand Conditioner Machine Name Role Phone Unavailable Primary Care Provider [...] Aortic Aneurysm Screening 2022 Falls Prevention 2022 [id number] ( season) 2024 07/03/2022, 07/23/2021, 01/08/2021, Additional history exists Alcohol and Drug Screen 09/07/2024 Depression Annual Screen 09/07/2024 Imm-Influenza (#1) 2025 06/25/2022, 1 09/14/2020, 06/06/2019, Additional history exists Imm-DTaP/Tdap/Td (2 - Td or Tdap) 05/14/2027 017 Imm-Zoster, Recombinant Completed 03/07/2019, 01/07 Insurance [facility]
[2025-04-26 11:10] LABS: MANUAL DIFF FLAG NO
[2025-04-26 11:17] LABS: Hematocrit 37.5 % (42.0-52.0); Hemoglobin 12.7 g/dl (14.0-18.0); Imm Gran Abs Auto 0.03 X10*3/uL (0.00-0.03); Imm Gran Pct Auto 0.4 % (0.0-0.4); Lymphocytes Absolute Auto 1.7 X10*3/uL (1.2-4.9); Mean Corpuscular HGB Conc 33.9 g/dl (31.0-36.0); Mean Corpuscular Hemoglobin 29.7 pg (27.0-33.0); Mean Corpuscular Volume 87.6 fL (80.0-98.0); NRBC Abs Auto 0.000 X10*3/uL (0.0-0.012); NRBC Pct Auto 0.0 /100WBC (0.0-0.2); Platelet Count 265 X10*3/uL (160-400); Red Blood Count 4.28 X10*6/uL (4.60-5.80); White Blood Count 7.1 X10*3/uL (4.8-10.8)
[2025-04-26 11:35] LABS: Alanine Aminotransferase 12 U/L (0-40); Anion Gap 11 (12-20); Aspartate Amino Transferase 27 U/L (5-37); Blood Urea Nitrogen 13 mg/dL (9-16); Calcium 8.9 mg/dL (8.4-10.2); Carbon Dioxide 26 mmol/L (22-29); Chloride 108 mmol/L (96-108); Cholesterol 127 mg/dL (<200); Estimated Glomerular Filt Rate > 60; HDL Cholesterol 46 mg/dL (>40); Potassium 4.0 mmol/L (3.3-5.1); Sodium 141 mmol/L (135-145); Triglycerides 90 mg/dL (<150)
== END 2025-04-26 08:35 | disposition home or self-care (01) ==
LOC: HO.HMGCLDS 08:34
PROVIDERS: PCP Internal Medicine; Visit Provider Internal Medicine
DX: E11.29 Type 2 diabetes mellitus with other diabetic kidney complication (principal); D64.9 Anemia, unspecified; R80.9 Proteinuria, unspecified; E78.5 Hyperlipidemia, unspecified
CPT/HCPCS: 36415; 80048; 80061; 84450; 84460; 85025

== ENCOUNTER 2025-05-31 12:52 | Outpatient (AMB) | payer MEDICARE, SELFPAY ==
--- NOTE | 2025-05-31 13:13 | A.OFFVIS_ITS ---
Vital Signs 05/31/25 13:22 Height 5 ft 9 in Weight 158 lb 2 oz BMI 23.3 BP 140/72 H Blood Pressure Location Rt brachial Position Sitting Pulse 80 Pulse Source Pulse Oximeter Pulse Oximetry (%) 98 Oxygen Delivery Method Room Air Intake Visit Reasons: INP-Amnesia Intake Note: Amnesia, lt hand tremor Certified Ophthalmic Surgical Assistant Required: Yes Certified Ophthalmic Surgical Assistant Services: Certified Ophthalmic Surgical Assistant Present Certified Ophthalmic Surgical Assistant Name: Nicoled - Gerardo Yoder #[id number] Accompanied by: Spouse Allergies No Known Allergies Allergy (Verified 05/31/25 13:18) Medication List - Last Reconciled 05/31/25 by Kerline Yu MD acetaminophen (Tylenol Extra Strength) 500 mg PO Q6H PRN albuterol sulfate 90 mcg/actuation 2 puffs inhalation Q6H PRN atorvastatin 40 mg PO DAILY blood sugar diagnostic ([employer] Verio test strips) Check blood sugar q.a.m. 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 He misplaces things around the house, difficulty recalling short term memory is sues .He frequently forgets to shower- needs reminder to shower. He is very irregular with his medications. He still drives - no problems with directions . Mood is stable.His also noticed mild hand tremors with action. He has fh/o alzheimers - his brother was diagnosed with Alzheimers recently [facility] Medical History (Updated 05/31/25 @ 13:51 by Kerline uY MD) Coarse tremors Mild cognitive impairment Family history of Alzheimer disease Memory difficulties Papillary renal cell carcinoma Anemia Erectile disorder due to medical condition in male Reactive airway disease Diabetes mellitus with microalbuminuria, without long-term current use of insulin Essential hypertension Benign prostatic hyperplasia Borderline open-angle glaucoma Dyslipidemia Surgical History Hx of colonoscopy History of cataract surgery Family History Father Throat cancer Mother Unknown family medical history Daughter No problems noted. Social History Housing: House Alcohol intake: current Alcohol intake frequency: does not drink Patient Tobacco Use Status: Never used Tobacco e-Cigarette/Vaping Use: Never Used Second Hand Smoke Exposure: No service: No Current occupational status: employed Current occupation: [employer] Current occupational exposures/hazards: No Cognitive needs: No Hearing needs: No Vision needs: Yes Physical Exam Vital Signs: Last Vital Signs Pulse 80 05/31/25 13:22 BP 140/72 H 05/31/25 13:22 Pulse Ox 98 05/31/25 13:22 Oxygen Delivery Method Room Air 05/31/25 13:22 BMI result Body Mass Index 23.3 Const General: cooperative, healthy appearing, comfortable, no acute distress and anxious Nutritional Appearance: average body habitus Eyes Pupils: Equal, round and reactive pupils present EOM: Nystagmus present Neuro General: tone normal and moves all extremities Cranial nerves: Yes Equal, round and reactive pupils present, Yes Bilaterally intact EOM present, Yes Nystagmus not present, Yes Normal facial strength present, Yes Midline tongue present, Yes Ability to bilaterally elevate shoulders present and Yes Nystagmus present Cognition (Neuro): normal cognition Gait exam (Neuro): Antalgic gait present Motor exam (neuro): 5/5 motor strength present throughout and Normal motor muscle tone present throughout Deep tendon reflexes (DTR's): Right triceps reflex intensity grade: 1+, Left triceps reflex intensity grade: 1+, Rt Biceps (C5, C6): 1+, Left biceps reflex intensity grade: 1+, Right brachioradialis reflex intensity grade: 1+, Left brachioradialis reflex intensity grade: 1+, Right patellar reflex intensity grade: 1+ and Left patellar reflex intensity grade: 1+ Coordination: [id number] test normal Orientation What is the (year) (season) (date) (day) (month)?: year, season, date and month Where are we (state) (county) (town or city) (hospital) (floor)?: state, county, town or city, hospital/clinic and floor Registration Name of 3 unrelated objects clearly and slowly, then ask patient to repeat all 3 of them. (1st repeat determines score. Make sure they can repeat all three): object 1, object 2 and object 3 Attention & Calculation (CHOOSE ONE) Spell WORLD backwards (DLROW): 2 letters Recall Ask patient to repeat the 3 items from question #3.: object 1, object 2 and object 3 Language Show patient a wristwatch & ask what it is. Repeat for pencil.: watch and pencil Ask the patient to repeat the phrase 'No ifs, ands, or buts' after you.: correct Ask the patient to 'take a piece of paper with their right hand' 'fold paper in half' 'place paper on floor': take paper in right hand and fold paper in half Print the sentence 'CLOSE YOUR EYES' on a piece. If patient actually closes eyes then score.: followed written direction Give patient a blank piece of paper & ask to write a sentence. Score if it contains a noun & verb.: sentence contains subject and verb Ask patient to copy figure of intersecting pentagons exactly. Score if all 10 angles & 2 intersects are included.: all 10 angles present & 2 are intersected Score Score: 25 Assessment & Plan Assessment & Plan (1) Mild cognitive impairment: Comment: likely vascular v smixed Code(s): G384 - Mild cognitive impairment of uncertain or unknown etiology Category: Medical (2) Coarse tremors: Comment: mild exaggerated physiological tremors Code(s): G25.2 - Other specified forms of tremor Category: Medical Plan reviewed CT -brain - non focal I will trial him on memantine XR 7 mg qd Schedule for cognitive therapy will monitor his tremors. labs- TSH Vit B 12 Vit D ESR CBC cMP to r/p reversible causes Orders: Orders TSH reflex Free T4 Today G384 - Mild cognitive impairment of uncertain or unknown etiology Erythrocyte Sedimentation Rate Today G384 - Mild cognitive impairment of uncertain or unknown etiology Comprehensive Met. Panel Today G384 - Mild cognitive impairment of uncertain or unknown etiology Vitamin B12 and Folate Today G3.84 - Mild cognitive impairment of uncertain or unknown etiology Complete Blood Count Auto Diff Today G31 - Mild cognitive impairment of uncertain or unknown etiology Referrals Speech and Hearing Referral G31.84 - Mild cognitive impairment of uncertain or unknown etiology Medications: New memantine 7 mg PO DAILY 30 ea 0RF Coding Level of Care Code New Pt Level 4 (25017) Complex EM visit Add On G2211 Diagnoses Mild cognitive impairment G31.84 Coarse tremors G25.2
[2025-05-31 13:22] VITALS: BP 140/72; PULSE 80; O2SAT 98; BMI 23.3
--- OUTSIDE RECORDS SUMMARY | 2025-05-31 15:18 | XMS_ITS | Clinical Summary ---
Author Organization [facility] Address [address] [place] [address] Care Team Providers Care Health Services Administrator Name Role Phone Unavailable Primary Care Provider [...] Aortic Aneurysm Screening 2022 Falls Prevention 2022 Alcohol and Drug Screen 09/07/2024 Depression Annual Screen 09/07/2024 [id number] ( season) 2025 07/03/2022, 07/23/2021, 01/08/2021, Additional history exists Imm-Influenza (#1) 2025 06/25/2022, 1 09/14/2020, 06/06/2019, Additional history exists Imm-DTaP/Tdap/Td (2 - Td or Tdap) 05/14/2027 017 Imm-Zoster, Recombinant Completed 03/07/2019, 01/07 Insurance [facility]
--- OUTSIDE RECORDS SUMMARY | 2025-05-31 15:18 | XMS_ITS | Patient Health Record ---
Author Organization [facility] Address [address] [place] [id number] Care Team Providers Care Wellness Health Coach Name Role Phone Karen JI, Jessica Primary [...] Problem Status W/U Status Risk Notes Problem [id number] Colon cancer screening (Z12.11) Active confirmed Problem [id number] Encounter for other preprocedural examination (Z01.818) Active confirmed Problem [id number] terminal superintendent (current) use of aspirin (Z79.82) Active confirmed Plan Of Treatment Future Test Test Name Order Date COLONOSCOPY 01/20/2018 Insurance Providers Payer Name Payer Address Payer Phone Subscriber Number Group Number Insured Name Patient Relationship to Insured Coverage Start Date Coverage End Date CIG[employer] [address] [place], [place] [address] [phone] [id number] DELMA GUSMAN Self - patient is the insured Medical (General) History Medical History History ICD Code diabetes mellitus hypertension hyperlipidemia cataracts Zenker diverticulum BPH Surgical History Surgery Date(Month/Year) cataract surgery
== END 2025-05-31 14:02 | disposition home or self-care (01) ==
LOC: HO.HSMS 12:52
PROVIDERS: PCP Internal Medicine; Visit Provider Psychiatry & Neurology Neurology
DX: G31.84 Mild cognitive impairment of uncertain or unknown etiology (principal); G25.2 Other specified forms of tremor
CPT/HCPCS: 99204; G2211

== ENCOUNTER → 2025-05-31 12:52 | Outpatient (BNVA) | payer MEDICARE, OTHER, SELFPAY | PROVIDERS: PCP Internal Medicine; Visit Provider Psychiatry & Neurology Neurology | DX: G31.84 Mild cognitive impairment of uncertain or unknown etiology (principal); G25.2 Other specified forms of tremor | CPT/HCPCS: 99202 ==

== ENCOUNTER 2025-06-20 13:46 | Outpatient (AMB) | payer MEDICARE, SELFPAY ==
[2025-06-20 14:01] VITALS: BMI 23.9
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
--- OUTSIDE RECORDS SUMMARY | 2025-06-20 16:44 | XMS_ITS | Patient Health Record ---
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 Name Role Phone Karen JI, Jessica Primary Care Provider Jason Kemp Jr Unavailable [phone] Reason For Referral No Information Medications Medication SIG (Take, Route, Frequency, Duration) Notes Start Date End Date Status Chris Aspirin Active Colyte with Flavor Packs 240 GM As directed Orally Over the specified time.; Duration: 1 day(s) Active Lisinopril Active Januvia Active [...] Problem Status W/U Status Risk Notes Problem Colon cancer screening (488752022) Colon cancer screening (Z12.11) Active confirmed Problem Pre-procedure evaluation check (508415021) Encounter for other preprocedural examination (Z01.818) Active confirmed Problem Long-term current use of antiplatelet drug ([id number] ) care home (current) use of aspirin (Z79.82) Active confirmed Plan Of Treatment Future Test Test Name Order Date COLONOSCOPY 01/20/2018 Insurance Providers Payer Name Payer Address Payer Phone Subscriber Number Group Number Insured Name Patient Relationship to Insured Coverage Start Date Coverage End Date [employer] [address] [place] [address] [id number] DELMA GUSMAN Self - patient is the insured Medical (General) History Medical History History ICD Code diabetes mellitus hypertension hyperlipidemia cataracts [place] diverticulum BPH Surgical History Surgery Date(Month/Year) cataract surgery
== END 2025-06-20 14:30 | disposition home or self-care (01) ==
LOC: HO.HPODS 13:47
PROVIDERS: PCP Internal Medicine; Visit Provider Student in an Organized Health Care Education/Training Program
DX: E11.29 Type 2 diabetes mellitus with other diabetic kidney complication (principal); R80.9 Proteinuria, unspecified; B35.3 Tinea pedis; L60.2 Onychogryphosis
CPT/HCPCS: 11721; 99204

== ENCOUNTER → 2025-06-20 13:46 | Outpatient (BNVA) | payer OTHER, MEDICARE, SELFPAY | PROVIDERS: PCP Internal Medicine; Visit Provider Student in an Organized Health Care Education/Training Program | DX: E11.29 Type 2 diabetes mellitus with other diabetic kidney complication (principal); B35.3 Tinea pedis; L60.2 Onychogryphosis; R80.9 Proteinuria, unspecified | CPT/HCPCS: 11721; 99202 ==